=== PATIENT | female | born 1970 | race Caucasian/White ===

== ENCOUNTER 2019-10-10 10:28 | Outpatient (CLI) | payer OTHER, SELFPAY ==
[2019-10-10 10:47] LABS: Basophils Absolute Auto 0.1 K/mm3 (0.0-0.1); Basophils Percent Auto 0.6 % (0.2-1.2); Eosinophils Absolute Auto 0.9 K/mm3 (0-0.3); Eosinophils Percent Auto 8.8 % (0-4.4); Hematocrit 29.7 % (37.0-47.0); Hemoglobin 8.5 g/dL (12.0-15.0); Immature Granulocyte Absolute 0.12 K/mm3 (0.00-0.031); Immature Granulocyte Percent A 1.2 % (0-0.5); Lymphocytes Absolute Auto 1.23 K/mm3 (0.9-3.2); Lymphocytes Percent Auto 12.7 % (18.3-44.2); Mean Corpuscular HGB Conc 28.6 g/dl (32-36); Mean Corpuscular Hemoglobin 20.8 pg (26-34); Mean Corpuscular Volume 72.8 fl (80-100); Mean Platelet Volume 9.9 fl (7.4-10.4); Monocytes Absolute Auto 1.2 K/mm3 (0.1-0.6); Monocytes Percent Auto 11.8 % (2.6-8.5); Neutrophils Absolute Auto 6.3 K/mm3 (1.3-6.7); Neutrophils Percent Auto 64.9 % (45.5-73.1); Platelet Count Result 297 k/mm3 (150-375); Red Blood Count 4.08 M/mm3 (4.2-5.4); Red Cell Distribution Width 14.7 % (11.5-14.5); White Blood Count 9.7 K/mm3 (4.5-10.0)
[2019-10-10 10:49] LABS: Platelet Estimate Adequate (Adequate)
[2019-10-10 10:50] LABS: Hypochromasia 2+ (NORMAL)
[2019-10-10 10:51] LABS: Ovalocytes 1+ (NORMAL); Poikilocytosis 1+ (NORMAL)
[2019-10-10 12:26] LABS: Iron 31 ug/dL (37-170)
[2019-10-10 12:36] LABS: Percent Iron Saturation 7 % (20-50)
[2019-10-10 13:29] LABS: Folic Acid 5.2 ng/mL (2.76->20)
== END 2019-10-10 10:29 | disposition home or self-care (01) ==
LOC: ANHLAB 10:29
PROVIDERS: Visit Provider Internal Medicine Hematology & Oncology
DX: D64.9 Anemia, unspecified (principal)
CPT/HCPCS: 36415; 82607; 82728; 82746; 83540; 83550; 85025

== ENCOUNTER 2019-10-18 05:09 | Day surgery (SDC) | payer OTHER, SELFPAY ==
--- NOTE | ~2019-10-18 | BM_ITS ---
EXAMINATION: CCL bone marrow asp w bx diag DATE: 10/18/2019 09:02 INDICATION: Anemia. TECHNIQUE: A time-out was performed to verify the patient's name, date of , and procedure to b e performed. The procedure including the risks, benefits, and alternatives was discussed with the pat ient. Risks discussed included bleeding and infection. The patient understood the risks and agreed to proceed. The skin overlying the right posterior iliac spine was prepped and draped in usual sterile fashion. Anesthetic was administered with 1% lidocaine subcutaneously. Systemic analgesia was provide d with 50 mcg fentanyl IV. An 11 gauge needle was inserted into the ilium with fluoroscopic guidance. Bone marrow was aspirated. An 8 gauge needle was then inserted into the ilium with fluoroscopic guid ance. A core bone marrow biopsy was obtained. There were no immediate complications. Fluoroscopy expo sure time was 0.2 minutes. The total number of images was 36. FINDINGS: Real-time fluoroscopy demonstrates a marker overlying the right posterior iliac spine. IMPRESSION: 1. Successful fluoro-guided bone marrow aspiration. 2. Successful fluoro-guided bone marrow core biopsy. Reviewed, dictated and finalized at location A. [facility]
--- NOTE | 2019-10-18 07:30 | SUR.PREOP ---
ARRIVES AMBULATORY TO [facility] 3 W/ AT SIDE FOR SCHEDULED BM BX AND ASPIRATION W/ DR. STYLES. A&OX4, STEADY GAIT, DENIES PAIN OR SOB. ORIENTED TO ROOM, PLAN OF CARE, PROCEDURE. VS OBTAINED, IV STARTED, CONSENT SIGNED. WILL MONITOR.
[2019-10-18 07:41] LABS: Basophils Absolute Auto 0.1 K/mm3 (0.0-0.1); Basophils Percent Auto 0.7 % (0.2-1.2); Eosinophils Absolute Auto 0.9 K/mm3 (0-0.3); Eosinophils Percent Auto 8.9 % (0-4.4); Hematocrit 28.6 % (37.0-47.0); Hemoglobin 8.2 g/dL (12.0-15.0); Immature Granulocyte Absolute 0.15 K/mm3 (0.00-0.031); Immature Granulocyte Percent A 1.6 % (0-0.5); Lymphocytes Absolute Auto 1.41 K/mm3 (0.9-3.2); Lymphocytes Percent Auto 14.6 % (18.3-44.2); Mean Corpuscular HGB Conc 28.7 g/dl (32-36); Mean Corpuscular Hemoglobin 20.4 pg (26-34); Mean Corpuscular Volume 71.3 fl (80-100); Monocytes Percent Auto 10.8 % (2.6-8.5); Neutrophils Absolute Auto 6.1 K/mm3 (1.3-6.7); Neutrophils Percent Auto 63.4 % (45.5-73.1); Platelet Count Result 354 k/mm3 (150-375); Red Blood Count 4.01 M/mm3 (4.2-5.4); White Blood Count 9.6 K/mm3 (4.5-10.0)
[2019-10-18 07:56] LABS: Hypochromasia 1+ (NORMAL); Platelet Estimate Adequate (Adequate)
[2019-10-18 08:00] VITALS: BP 144/118; PULSE 81; RESP 20; TEMP 37.2; O2SAT 100
[2019-10-18 08:23] VITALS: BMI 40.6
[2019-10-18 09:10] VITALS: BP 122/99; PULSE 75; RESP 12; TEMP 37.1; O2SAT 100
[2019-10-18 09:25] VITALS: BP 147/88; PULSE 79; RESP 20
[2019-10-18 09:40] VITALS: BP 156/82; PULSE 78; RESP 22
[2019-10-18 09:55] VITALS: BP 146/81; PULSE 85; RESP 23
--- NOTE | 2019-10-18 10:13 | SUR.PHASEII ---
DISCHARGE INSTRUCTIONS REVIEWED WITH PATIENT AND SPOUSE BY DOMENICA THOMPSON, ALL QUESTIONS ANSWERED, IV DISCONTINUED, PATIENT DRESSING SELF, AND DRESSING IS CLEAN, DRY AND INTACT. PATIENT TAKEN OUT TO PRIVATE VEHICLE VIA WHEELCHAIR.
== END 2019-10-18 10:26 | disposition home or self-care (01) ==
PROVIDERS: PCP Nurse Practitioner Adult Health; Referring Provider Internal Medicine Hematology & Oncology; Visit Provider Radiology Diagnostic Radiology
DX: D64.9 Anemia, unspecified (principal)
CPT/HCPCS: 36415; 38222; 85025; 85610; 88184; 88185; 88305; 88311; 88313; 88342; 88360; J3010; J7040

== ENCOUNTER 2019-12-02 19:56 | Emergency (ER) | payer OTHER, SELFPAY ==
--- NOTE | ~2019-12-02 | XR_ITS ---
EXAMINATION: XR hip LT min 2V INDICATION: Left hip pain TECHNIQUE: Two views of the left hip are obtained. COMPARISON: None available FINDINGS: Bone alignment is normal. There is no fracture. The femoral head is well-seated in the acet abulum. The soft tissues are unremarkable. IMPRESSION: 1. No acute osseous abnormality. Reviewed, dictated and finalized at location A.
[2019-12-02 20:01] VITALS: BP 161/75; PULSE 76; RESP 18; TEMP 36.7; O2SAT 98
--- NOTE | 2019-12-02 20:30 | ED.LOWEXIN ---
HPI - Extremity Injury (Lower) General Chief Complaint: Extremity Injury, Lower Stated Complaint: HIP PAIN Time Seen by Provider: 12/02/19 20:01 History of Present Illness HPI Narrative: Left hip pain for the past few months. Increasing in severity. Made worse by coughing. Was controlled with Naproxen until last week, Now it is not providing any relief. She reports that she has discussed this pain with her PCP and tie puller. According to her she has had a negative x-ray and lab work-up. I discussed the case with the physician information systems operator for her PCP. She says there is nothing in the the record to indicate that she has ever addressed this or had any testing related to this issue. She has a h/o lupus. Related Data Home Medications Medication Instructions Recorded Confirmed aripiprazole 5 mg PO HS 10/18/19 11/07/19 aspirin [Adult Low Dose Aspirin] 81 mg PO DAILY 10/18/19 11/07/19 naproxen sodium 220 mg PO DAILY PRN 10/18/19 11/07/19 sertraline 100 mg PO DAILY 10/18/19 11/07/19 Allergies Allergy/AdvReac Type Severity Reaction Status Date / Time cinnamon Allergy Anaphylaxis Verified 12/02/19 20:09 erythromycin base Allergy Rash Verified 12/02/19 20:09 levofloxacin [From Levaquin] Allergy Hallucinati Verified 12/02/19 20:09 ng nutmeg oil (Myristica seed Allergy Anaphylaxis Verified 12/02/19 20:09 oil) all spice Allergy Anaphylaxis Uncoded 10/18/19 08:13 mace Allergy Anaphylaxis Uncoded 10/18/19 08:13 Review of Systems Review of Systems: All systems reviewed & are unremarkable except as noted in HPI and below Constitutional: Constitutional: Denies chills and Denies fever(s) ENT: Denies dizziness Cardiovascular: Cardiovascular: Denies chest pain Respiratory: Respiratory: Denies dyspnea Gastrointestinal: Gastrointestinal: Denies abdominal pain and Denies nausea Musculoskeletal: Musculoskeletal: Denies back pain and Reports arthralgias Neurologic: Denies numbness and Denies weakness PMF Past Medical History Medical History HTN (hypertension) SLE (systemic lupus erythematosus related syndrome) Social History Social History Smoking status: Never smoker Gender identity (if verbalized by the patient): Female Spiritual care concerns: No Exam Const: General: healthy appearing, no acute distress and alert Orientation/consciousness: patient oriented x3 HENMT: Head: normal to inspection Neck: Neck: normal visual inspection and no lymphadenopathy Chest: Chest palpation & inspection: no tenderness Resp: Effort & Inspection: normal respiratory effort Auscultation: clear to auscultation bilaterally, no rales, no rhonchi and no wheezes Cardio: Jugular venous distension: no JVD Rate: regular rate Rhythm: regular rhythm Heart sounds: no murmurs GI: Inspection: non-distended GI Palp: Yes Soft to palpation and No Tenderness to palpation present (GI) Skin: General skin exam: normal color Rashes: no rashes Neuro: General: patient oriented x3 and moves all extremities Speech: normal speech Extrem: Other: Point tenderness over left hip. No erythema, swelling or warmth Psych: Appearance: well kempt Affect: normal affect Course Vital Signs Vital signs: Vital Signs Temperature 36.7 C 12/02/19 20:01 Pulse Rate 76 12/02/19 20:01 Respiratory Rate 18 12/02/19 20:01 Blood Pressure 161/75 H 12/02/19 20:01 Pulse Oximetry 98 12/02/19 20:01 Temperature 36.7 C 12/02/19 20:01 Pulse Rate 76 12/02/19 20:01 Respiratory Rate 18 12/02/19 20:01 Blood Pressure 161/75 H 12/02/19 20:01 Pulse Oximetry 98 12/02/19 20:01 MDM - Extremity Injury (Lower) MDM Narrative Medical decision making narrative: SHe has chronic pain inthe left hip which she reportedly was having worked up by both her PCP and tie puller. According to the conversation that I had with
[2019-12-02] MEDS: KETOROLAC (*BKC) 60 MG/2 ML VIAL IM (20:39)
--- NOTE | 2019-12-02 21:09 | PC.NURSE ---
Patient being taken to radiology.
[2019-12-02] MEDS: TRAMADOL HCL 50 MG TABLET PO (22:18)
== END 2019-12-02 22:47 | disposition home or self-care (01) ==
PROVIDERS: Emergency Provider Emergency Medicine; PCP Nurse Practitioner Adult Health
DX: M25.552 Pain in left hip (principal); G89.29 Other chronic pain; I10 Essential (primary) hypertension; M32.9 Systemic lupus erythematosus, unspecified
CPT/HCPCS: 73502; 96372; 99283; A9270; J1885

== ENCOUNTER 2020-02-13 07:39 | Outpatient (CLI) | payer OTHER, SELFPAY ==
--- NOTE | ~2020-02-13 | PE_ITS ---
EXAMINATION: PET skull to mid thigh DATE: 02/13/2020 09:40 INDICATION: Bone and joint lesions. TECHNIQUE: Blood glucose level was 95 mg/dL. 10.114 mCi of 18-fluorodeoxyglucose (18-FDG) was adminis tered i.v. Low dose computed tomography (CT) images were acquired from the base of the brain to the p roximal thighs for attenuation correction and anatomic localization. Positron emission tomography (PE T) images were acquired in the same distribution beginning 57 minutes after injection. Images includi ng fused PET/CT images were reconstructed in axial, coronal, and sagittal planes. Automated exposure control technique was employed. The dose-length product was 1304.59mGy-cm. COMPARISON: None FINDINGS: Head/neck: There is symmetric increased activity in the oral cavity, palatine tonsils, laryngeal muscles and ocu lar muscles without CT correlate, likely physiologic. There is increased FDG uptake with maximal SUV of 5.3 centered at the neck of the mandible where there appears to be subtle surrounding periosteal r eaction which is concerning for metastatic disease. No pathologically enlarged cervical lymphadenopat hy or other suspicious foci of increased FDG uptake in the visualized head or neck. Chest: Moderate diffuse increased uptake with maximal SUV of 6.6 throughout the collapsed right middle lobe. 1.6 cm nodule at the posterior sulcus of the right lower lobe which is without discernible FDG uptak e. Calcified nodules in the left upper lobe and calcified left hilar lymph nodes consistent with old granulomatous disease. No other suspicious pulmonary nodules, pneumonia, pulmonary edema or pleural e ffusion. Heart size is normal. No pericardial effusion. No pathologically enlarged or FDG avid thorac ic lymphadenopathy. There is focal increased uptake with maximal SUV of 5.2 cm in the region of the T 8-T9 disc space were superior aspect of the T9 vertebral body without evident radiologic correlate. Abdomen/pelvis/proximal thighs: There is an approximately 5.1 x 3.6 x 2.3 cm region of increased FDG uptake at the lateral aspect of segment 6 of the liver with mildly increased FDG uptake of with maximal SUV of 4.3 which is without e vident correlate on the CT images. Physiologic renal accumulation and excretion of FDG activity in th e kidneys, bladder and along portions of ureters. Couple larger nonobstructing stones in the left kid vi the larger measuring 9 x 6 mm. The gallbladder, pancreas, spleen and bilateral adrenal glands are normal. There is marked FDG uptake at the distal sigmoid colon with maximal SUV of 21.4 and with sug gestion of associated wall mild wall thickening which raises concern for malignancy. There is otherwi se mild uptake scattered throughout the bowels without radiologic correlate, also likely physiologic. No pathologically enlarged abdominal, pelvic or inguinal lymphadenopathy. There is additional intens e increased FDG uptake with maximal SUV of 17.0/oh with a large expansile lytic lesion with pathologi c fracture at the right atrium and lateral aspect of the right inferior pubic ramus. There is thicken ed soft tissue surrounding the bone likely representing extraosseous extension of malignancy. There i s additional small regions of increased FDG uptake in the left ischium as well as around the margins of the left acetabulum with maximal SUV of 7.2. There is a subtle permeative appearance to the bone w ith additional pathologic fracture at the junction of the left superior pubic ramus and anterior left acetabulum. Finally there is a small region of increased FDG uptake with maximal SUV of 5.6 located at or near the left lesser trochanter without evident osseous correlate. There is an approximately 2 cm nodular density along the posterior margin of the left iliopsoas tendon at its lesser trochanteric insertion, unclear whether this represents soft tissue density nodule concerning for neoplasm or pot e
[2020-02-13 08:07] LABS: Glucose Point of Care 95 (65-105)
== END 2020-02-13 07:40 | disposition home or self-care (01) ==
LOC: ANHIMG 07:39
PROVIDERS: PCP Nurse Practitioner Adult Health; Visit Provider Nurse Practitioner Adult Health
DX: A66.6 Bone and joint lesions of yaws (principal); R91.1 Solitary pulmonary nodule
CPT/HCPCS: 78815; A9552

== ENCOUNTER 2020-02-20 00:13 | Outpatient (CLI) | payer OTHER, SELFPAY ==
[2020-02-20 18:37] LABS: SARS-CoV-2 RNA PCR Negative
== END 2020-02-20 00:14 | disposition home or self-care (01) ==
LOC: ANHCOVIDDT 00:14
PROVIDERS: PCP Nurse Practitioner Adult Health; Visit Provider Surgery
DX: Z01.812 Encounter for preprocedural laboratory examination (principal); Z11.59 Encounter for screening for other viral diseases
CPT/HCPCS: 87635; C9803; U0003

== ENCOUNTER 2020-02-21 02:34 | Day surgery (SDC) | payer OTHER, SELFPAY ==
[2020-02-18 16:22] VITALS: BMI 40.4
--- NOTE | ~2020-02-21 | XR_ITS ---
EXAMINATION: XR chest port-a-cath/central DATE: 02/21/2020 10:16 INDICATION: Port placement. TECHNIQUE: A single frontal view of the chest was obtained. COMPARISON: Chest 2 views 03/24/2004 FINDINGS: There is chronic elevation of right hemidiaphragm. There is mild atelectasis at right lung base. A calcified left lung nodule and calcified left hilar lymph nodes are consistent with old granu lomatous disease. No pleural effusion or pneumothorax. The heart size is normal. There is a right int ernal jugular port with tip at superior cavoatrial junction. IMPRESSION: 1. Port tip at superior cavoatrial junction. 2. Chronic elevation of right hemidiaphragm with mild atelectasis at right lung base. Reviewed, dictated and finalized at location A.
--- NOTE | ~2020-02-21 | XR_ITS ---
EXAMINATION: XR fl guide central line place DATE: 02/21/2020 09:44 INDICATION: Port placement. TECHNIQUE: A single intraoperative fluoroscopic view of the chest was obtained. I was not present. Fl uoroscopy exposure time was 25 seconds. COMPARISON: PET CT 02/13/2020 FINDINGS: There is a right internal jugular port with tip in right atrium. IMPRESSION: 1. Port tip in right atrium. Reviewed, dictated and finalized at location A.
--- NOTE | 2020-02-21 07:38 | PM.HPGS ---
History of Present Illness History of Present Illness Consent: Risks, benefits, and alternatives of placement of a Port-A-Cath have been discussed and questions answered. Patient agrees to proceed with procedure. Chief complaint: Colon Cancer Narrative: Karina Rodriguez is a 49 year old female who apparently had blood abnormalities and then a PET scan showed several bone lesions with increased FDG uptake. These included the ACL on the right the pubic ramus in the left acetabulum. She subsequently had a CT-guided biopsy of the right ischial tuberosity and because of suspected metastatic colon cancer presents at this time to have a Port-A-Cath placed. She is planning chemotherapy with Dr. Bueno. Review of Systems Constitutional: Constitutional: Reports no additional constitutional complaints, Reports fatigue and Denies malaise Eyes: Eyes: Denies change in vision and Denies loss of vision ENT: Reports Normal hearing present, Denies change in voice, Denies dizziness, Denies hoarseness and Denies sore throat Cardiovascular: Cardiovascular: Denies chest pain, Denies leg edema and Denies dyspnea Respiratory: Respiratory: Denies cough, Denies dyspnea and Denies wheezing Gastrointestinal: Gastrointestinal: Denies hematochezia, Denies change in bowel habits and Denies heartburn Genitourinary: Genitourinary: Denies urinary frequency and Denies urinary incontinence Musculoskeletal: Comments: History of lupus on medications. Neurologic: Reports Normal hearing present, Denies confusion, Denies dizziness, Denies loss of vision, Denies memory loss and Denies seizure-like activity Psychiatric: Psychiatric: Denies confusion, Denies depression and Denies memory loss Endocrine: Endocrine: Denies cold intolerance and Reports fatigue Hematologic/Lymphatic: Hematologic/Lymphatic: Denies easy bleeding and Denies easy bruising Comments: History of anemia, multifactorial History of vitamin B12 deficiency. Allergic/Immunologic: Allergic/Immunologic: Denies wheezing PMFSH Past Medical History Medical History HTN (hypertension) SLE (systemic lupus erythematosus related syndrome) (Unknown) Social History Social History Smoking status: Never smoker Gender identity (if verbalized by the patient): Female Spiritual care concerns: No Meds Home Medications and Allergies Home Medications Medication Instructions Recorded Confirmed Type aripiprazole 5 mg PO DAILY 10/18/19 02/21/20 History aspirin [Adult Low Dose Aspirin] 81 mg PO DAILY 10/18/19 02/21/20 History naproxen sodium 220 mg PO DAILY PRN 10/18/19 02/21/20 History sertraline 100 mg PO DAILY 10/18/19 02/21/20 History ergocalciferol (vitamin D2) 50,000 unit PO WEEKLY 02/18/20 02/21/20 History morphine 30 mg PO Q12H 02/18/20 02/21/20 History Allergies Allergy/AdvReac Type Severity Reaction Status Date / Time cinnamon Allergy Anaphylaxis Verified 02/18/20 16:02 erythromycin base Allergy Rash Verified 02/18/20 16:02 levofloxacin [From Levaquin] Allergy Hallucinati Verified 02/18/20 16:02 ng nutmeg oil (Myristica seed Allergy Anaphylaxis Verified 02/18/20 16:02 oil) all spice Allergy Anaphylaxis Uncoded 02/18/20 16:02 mace Allergy Anaphylaxis Uncoded 02/18/20 16:02 Exam Const: General: cooperative, healthy appearing, no acute distress, well developed and alert; No confusion Nutritional Appearance: well nourished Orientation/consciousness: patient oriented x3 and No confusion Limitations: no limitations HENMT: Head: normal to inspection, normocephalic and atraumatic Ears: hearing grossly normal bilaterally General nose exam: Normal external nose present Face and sinus: no edema Mouth: Yes Normal oral and palatal mucosa present and Yes lip normal Throat: posterior oropharynx normal Eyes: General: appearance normal, both eyes and all related struc
--- NOTE | 2020-02-21 07:43 | WPDANESEPPF ---
Anes - Initial Pre Proc Eval Procedure: Operation Date: 02/21/20 09:00 Proposed Procedures p Insertion Ann Cath - William Chester MD Date/Time: 02/21/20 07:43 Surgeon: Willaim Chester MD Pre Op Diagnosis: Colon Cancer Patient Data Age: 49 Gender: F Height: 5 ft 5 in Weight: 110.22 kg Allergies Allergy/AdvReac Type Severity Reaction Status Date / Time cinnamon Allergy Anaphylaxis Verified 02/18/20 16:02 erythromycin base Allergy Rash Verified 02/18/20 16:02 levofloxacin [From Levaquin] Allergy Hallucinati Verified 02/18/20 16:02 ng nutmeg oil (Myristica seed Allergy Anaphylaxis Verified 02/18/20 16:02 oil) all spice Allergy Anaphylaxis Uncoded 02/18/20 16:02 mace Allergy Anaphylaxis Uncoded 02/18/20 16:02 Home Medications Medication Instructions Recorded Confirmed Type aripiprazole 5 mg PO DAILY 10/18/19 02/18/20 History aspirin [Adult Low Dose Aspirin] 81 mg PO DAILY 10/18/19 02/18/20 History naproxen sodium 220 mg PO DAILY PRN 10/18/19 02/18/20 History sertraline 100 mg PO DAILY 10/18/19 02/18/20 History ergocalciferol (vitamin D2) 50,000 unit PO WEEKLY 02/18/20 02/18/20 History morphine 30 mg PO Q12H 02/18/20 02/18/20 History Patient hx anesthesia problems: none Family hx anesthesia problems: none PMFSH Past Medical History Medical History HTN (hypertension) SLE (systemic lupus erythematosus related syndrome) (Unknown) Social History Social History Smoking status: Never smoker Gender identity (if verbalized by the patient): Female Spiritual care concerns: No Anes - Eval Final PreProcedure Day of Procedure 02/21/20 07:43 Patient weight: morbidly obese Heart: regular rate and rhythm Lungs: decreased breath sounds Airway: Mallampati scale class II Neurological: alert and oriented Last oral intake: >/= 8 hours ASA classification: III Emergent: no Anesthetic plan: proceed Anesthesia type and monitoring: general GIVS and standard monitoring Informed Consent: The patient's anesthetic plan and its attendant risks and benefits were discussed with the patient/family/POA. Questions were solicited and answers provided to the satisfaction of the patient/family/POA.
[2020-02-21 08:00] VITALS: BP 144/79; PULSE 93; TEMP 36.1; O2SAT 97
[2020-02-21] MEDS: LACTATED RINGERS 1,000 ML 30 ML IV CONT (08:10)
[2020-02-21] MEDS: KETOROLAC 15 MG/ML VIAL (*BKC) IV PUSH (08:46)
[2020-02-21] MEDS: ceFAZolin 2 GM/D5W 50 ML 2 GM/50 ML BAG IVPB (09:01)
[2020-02-21] MEDS: BUPIVACAINE/EPINEPHRINE 0.5% 30 ML VIAL INFILTRATE (09:18)
[2020-02-21] MEDS: HEPARIN SODIUM 5,000 UNITS/ML VIAL 5000 UNITS IRRIGATION (09:21)
--- NOTE | 2020-02-21 09:47 | PM.PROC ---
Procedure Note - Detailed Date of procedure: 02/21/20 Pre-op diagnosis: Colon Cancer Possible bony metastasis secondary to colon cancer Post-op diagnosis: same Procedure performed: placement of Port-A-Cath Description of procedure: Patient was seen and marked in the pre-op area prior to coming to the OR. Patient was brought to the operating room. She was placed supine on the operating table and general IV sedation was induced. The nurse seed potato cutter provided oxygen and IV sedation. Patient's head was carefully turned to the left side while in the supine position and the patient's entire neck and anterior chest on both sides was prepped and draped in the usual sterile fashion. Following this the appropriate time-out was completed confirming procedure and patient. We confirmed that all the needed equipment was present in the room. Following this the ultrasound probe was draped into the field and using the probe we carefully identified the carotid artery and jugular vein on the right neck. I marked the skin directly over the Rt. internal jugular vein. Following this, using the continuous ultrasound guidance, a Cook needle was placed through the skin into this vein. I then was able to draw back good dark blood. Once this was completed a guidewire using a J-tip was advanced through the needle and then the needle and the guidewire cover were withdrawn. C-arm fluoroscopy was used to confirm that the guidewire was nicely in the venous system. Once this was confirmed with the C - arm I preceded on by making the pocket for the port on the patient's anterior right chest approximately 3 centimeters below the clavicle overlying the chest wall. Local anesthetic was infiltrated into the skin where there was a transverse incision marked out. Incision was made and we made a pocket inferior to the incision with just a little dissection superior. The Smart port was tried in the pocket and seemed to fit well. Following this the catheter which had been placed on a tunneling device was tunneled from the port site on the anterior right chest up to the right neck where a small incision had been made with an #11 blade knife. Then the catheter was pulled through so that we would have 15 centimeters to put into the central venous system once the dilation took place. Following this we placed the dilator and sheath over the guidewire in the jugular vein and carefully dilated the tract into the central venous system. The guidewire and dilator were then removed, carefully covering the end of the sheath to prevent air embolus. The end of the catheter which had been cut off straight across and the tip checked was then inserted into the sheath and into the neck. I then carefully pulled the 2 arms of the tear-away sheath away as the project assistant held the catheter in position with a DeBakey forceps. Following this we checked the position of the catheter with C-arm fluoroscopy confirming that the tip seemed to be in the distal superior vena cava near the junction with the right atrium. I felt that it was in good position and so the rest of the catheter was pulled down toward the feet into the port site. We then measured to the appropriate position to cut the catheter to attach it to the port stem. Then the connector sealing device for the catheter port was placed onto the catheter and then the catheter cut to the appropriate length and inserted onto the stem of the port. Then the connector was advanced onto the stem over the catheter sealing it to the port. A single 3- 0 Prolene suture was also used during this to suture the connector to the port and to the underlying musculature. Following this at one other site the port was sutured to the underlying musculature with the 3-0 Proline. Both prior to connecting the catheter to the port and then using a straight Villanueva needle following this connection, the port was aspirated of good dark blood and flushed with heparinized saline to keep the catheter
[2020-02-21 09:55] VITALS: BP 137/73; PULSE 87; RESP 14; O2SAT 94
[2020-02-21 10:25] VITALS: BP 138/71; PULSE 85; RESP 14
[2020-02-21 10:55] VITALS: BP 139/70; PULSE 78; RESP 14
--- NOTE | 2020-02-21 14:59 | SUR.PHASEII ---
DR OREILLY CALLED ABOUT HER CHEST XRAY AND ASKED ME TO GET HER AN INCENTIVE SPIROMETER AND TEACH HER ON USING IT. PT IS EDUCATED AND SAYS SHE WILL USE IT AT HOME FOR THE NEXT FEW DAYS.
== END 2020-02-21 11:00 | disposition home or self-care (01) ==
PROVIDERS: PCP Nurse Practitioner Adult Health; Visit Provider Surgery
PROC: (CPT 36561; principal; 2020-02-21 09:00)
DX: C18.9 Malignant neoplasm of colon, unspecified (principal); C79.51 Secondary malignant neoplasm of bone; I10 Essential (primary) hypertension; M32.9 Systemic lupus erythematosus, unspecified; D64.9 Anemia, unspecified; Z79.82 Long term (current) use of aspirin; E66.01 Morbid (severe) obesity due to excess calories; Z68.38 Body mass index [BMI] 38.0-38.9, adult
CPT/HCPCS: 36561; 36415; 77001; 85610; 85730; C1788; J0690; J1644; J1885; J2250; J2704; J3010; J7030; J7120

== ENCOUNTER 2020-02-26 00:51 | Outpatient (CLI) | payer OTHER, SELFPAY ==
[2020-02-27 13:59] LABS: SARS-CoV-2 RNA PCR Negative
== END 2020-02-26 00:52 | disposition home or self-care (01) ==
LOC: ANHCOVIDDT 00:53
PROVIDERS: PCP Nurse Practitioner Adult Health; Visit Provider Radiology Diagnostic Radiology
DX: C18.7 Malignant neoplasm of sigmoid colon (principal); Z01.818 Encounter for other preprocedural examination; Z11.59 Encounter for screening for other viral diseases
CPT/HCPCS: 87635; C9803; U0003

== ENCOUNTER 2020-02-28 13:21 | Outpatient (CLI) | payer OTHER, SELFPAY ==
[2020-02-26 14:12] VITALS: BMI 39.7
[2020-02-28] VITALS (8 sets, daily range): BP systolic 147–159; BP diastolic 65–88; PULSE 80–155; RESP 12–18; TEMP 37; O2SAT 92–100
--- NOTE | ~2020-02-28 | CT_ITS ---
EXAMINATION: CT biopsy bone deep DATE: 02/28/2020 14:44 INDICATION: Colon cancer with lytic bone lesions. TECHNIQUE: The procedure including the risks and benefits was discussed with the patient. Risks discu ssed included bleeding and infection. The patient understood the risks and agreed to proceed. The sk in overlying the right ischial tuberosity was prepped and draped in usual sterile fashion. Anestheti c was administered with 1% lidocaine subcutaneously. Moderate sedation was also provided by the [facility] tment of anesthesia. A 16 gauge outer needle was advanced under CT guidance to the lesion of interest . An 18 gauge core biopsy needle was then advanced into the lesion. 7 core biopsy specimens were obta ined. The outer needle was removed and the entry site was cleaned and dressed. There were no immedia te complications. The dose-length product was 141.19 mGy-cm. FINDINGS: CT images demonstrate the outer needle tip at the margin of a destructive lytic lesion invo lving the right ischial tuberosity. Small amount of ascites in the pelvis. IMPRESSION: 1. Successful CT-guided biopsy of a destructive lytic lesion of the right ischial tuberosity. Reviewed, dictated and finalized at location A. IMPRESSION: 1. Successful CT-guided biopsy of a destructive lytic lesion of the right ischi al tuberosity.
--- NOTE | 2020-02-28 11:44 | WPDANESEPPF ---
Anes - Initial Pre Proc Eval Procedure: Operation Date: 02/28/20 13:00 Proposed Procedures p Post Procedure Recovery For CT Bone Biopsy - Gabe Mckeon MD Date/Time: 02/28/20 11:44 Surgeon: Lai Bueno MD Pre Op Diagnosis: colon cancer Patient Data Age: 49 Gender: F Height: 5 ft 5 in Weight: 108.41 kg Allergies Allergy/AdvReac Type Severity Reaction Status Date / Time cinnamon Allergy Anaphylaxis Verified 02/26/20 14:12 erythromycin base Allergy Rash Verified 02/26/20 14:12 levofloxacin [From Levaquin] Allergy Hallucinati Verified 02/26/20 14:12 ng nutmeg oil (Myristica seed Allergy Anaphylaxis Verified 02/26/20 14:12 oil) all spice Allergy Anaphylaxis Uncoded 02/26/20 14:12 mace Allergy Anaphylaxis Uncoded 02/26/20 14:12 Home Medications Medication Instructions Recorded Confirmed Type aripiprazole 5 mg PO QNOON 10/18/19 02/26/20 History aspirin [Adult Low Dose Aspirin] 81 mg PO DAILY 10/18/19 02/26/20 History naproxen sodium 220 mg PO DAILY PRN 10/18/19 02/26/20 History sertraline 100 mg PO DAILY 10/18/19 02/26/20 History ergocalciferol (vitamin D2) 50,000 unit PO WEEKLY 02/18/20 02/26/20 History morphine 30 mg PO Q12H 02/18/20 02/26/20 History hydrocodone-acetaminophen 1 tablet PO Q6H PRN #30 tablet 02/24/20 02/26/20 Rx Patient hx anesthesia problems: none Family hx anesthesia problems: none PMFSH Past Medical History Medical History (Updated 02/28/20 @ 11:44 by Oneal Schmitz MD) Anemia (~08/2019) Bone metastasis (~01/2020) Colon cancer metastasized to bone (~12/2019) History of lung cancer in adulthood HTN (hypertension) SLE (systemic lupus erythematosus related syndrome) (Unknown) Family History Family History (Updated 02/24/20 @ 13:46 by Figueroa Nicole MD) Other Unknown family medical history Social History Social History Smoking status: Never smoker Gender identity (if verbalized by the patient): Female Spiritual care concerns: No Anes - Eval Final PreProcedure Day of Procedure 02/28/20 11:44 Patient weight: morbidly obese Heart: regular rate and rhythm Lungs: clear to auscultation Airway: Mallampati scale class III Neurological: alert and oriented Last oral intake: >/= 8 hours ASA classification: IV Emergent: no Anesthetic plan: proceed Anesthesia type and monitoring: general GIVS and standard monitoring Informed Consent: The patient's anesthetic plan and its attendant risks and benefits were discussed with the patient/family/POA. Questions were solicited and answers provided to the satisfaction of the patient/family/POA.
[2020-02-28] MEDS: LACTATED RINGERS 1,000 ML 30 ML IV CONT (14:51)
== END 2020-02-28 16:50 | disposition home or self-care (01) ==
PROVIDERS: Radiology Diagnostic Radiology; PCP Nurse Practitioner Adult Health; Visit Provider Internal Medicine Hematology & Oncology
DX: C18.9 Malignant neoplasm of colon, unspecified (principal)
CPT/HCPCS: 20225; 77012; 88307; 88313; 88342; A9270; J2704

== ENCOUNTER 2020-03-26 10:38 | Outpatient (CLI) | payer OTHER, SELFPAY ==
--- NOTE | ~2020-03-26 | US_ITS ---
EXAMINATION: US venous doppler LE RT DATE: 03/26/2020 11:18 INDICATION: Right lower limb swelling. TECHNIQUE: Grayscale ultrasound images without and with compression and Doppler ultrasound images of the right lower extremity veins were obtained. COMPARISON: None. FINDINGS: The visualized portions of right common femoral vein, profunda (deep) femoral vein, femoral vein, pop liteal vein, peroneal veins, posterior tibial veins, and greater saphenous vein outflow are patent. IMPRESSION: 1. No deep venous thrombosis. Reviewed, dictated and finalized at location B.
== END 2020-03-26 10:39 | disposition home or self-care (01) ==
LOC: ANHIMG 10:40
PROVIDERS: PCP Nurse Practitioner Adult Health; Visit Provider Internal Medicine Hematology & Oncology
DX: M79.89 Other specified soft tissue disorders (principal)
CPT/HCPCS: 93971

== ENCOUNTER 2020-04-02 23:10 | Observation (INO) | payer OTHER, SELFPAY ==
--- NOTE | ~2020-04-02 | CT_ITS ---
EXAMINATION: CT chest abdomen pelvis wo con DATE: 04/03/2020 18:44 INDICATION: Gastrointestinal bleed TECHNIQUE: Computed tomography (CT) of the chest, abdomen, and pelvis was performed without intraveno us contrast. Automated exposure control and iterative reconstruction technique were employed. The dos e-length product was 1592.43 mGy-cm. COMPARISON: PET/CT dated 02/13/2020 FINDINGS: CHEST CT: Right subclavian central venous port catheter with distal tip in the high right atrium. Chronic colla pse of the right middle lobe with elevation of right hemidiaphragm. Unchanged 1.5 cm nodule at the po sterior sulcus of the right lower lobe. Atelectasis/scarring in the right lower lobe. No pneumonia, p ulmonary edema, pleural effusion or pneumothorax. A few scattered calcified pulmonary nodules in both lungs along with calcified left hilar lymph nodes consistent with old granulomatous disease. Heart s ize is normal. No pericardial effusion. No pathologically enlarged thoracic lymphadenopathy. Mild tho racic spondylosis. ABDOMEN/PELVIS CT: There are 4 subtle hypodense hepatic masses consistent with metastatic disease. Gallbladder, pancreas and bilateral adrenal glands are normal. Splenic calcifications consistent with old granulomatous di sease. There are obstructing stones at the distal aspect of both the left and right ureters measuring 9 x 4 mm in the distal right ureter and 5 x 3 mm in the distal right ureter. Mild bilateral hydroure teronephrosis. There are few additional stones in both kidneys the largest at the lower pole calyces of the left kidney. Normal appendix. No bowel obstruction. There is wall thickening and surrounding inflammatory stranding at the distal sigmoid colon consisten t with reported colon cancer. There are few surrounding perirectal lymph nodes along with an approxim ately 1.7 cm spiculated nodule in the presacral fat which are concerning for metastatic disease. Blad rosetta is normal. The uterus is not identified and has likely been surgically resected. Small amount of ascites in the deep pelvis. Scattered soft tissue calcifications associated with an expansile lytic mass with destructive changes and pathologic fracture at the right ischium and inferior pubic ramus. There is additional soft tiss ue thickening with periosteal reaction extending medially from a lytic lesion with pathologic fractur e at the junction of the left acetabulum and superior pubic ramus. There is an additional healing lik joshua pathologic fracture with increased sclerosis at the right superior pubic ramus. IMPRESSION: 1. No acute cardiopulmonary disease. 2. Bilateral nephrolithiasis with obstructing stones at the bilateral distal ureters resulting in mil d bilateral hydronephrosis. 3. Wall thickening at the distal sigmoid colon consistent with primary colon cancer with likely metas tatic perirectal lymph nodes, hepatic masses and lytic pelvic bone lesions with pathologic fractures as detailed above. Reviewed, dictated and finalized at location A. IMPRESSION: 1. No acute cardiopulmonary disease. 2. Bilateral nephrolithiasis with obstructing stones at the bilateral distal ur eters resulting in mild bilateral hydronephrosis. 3. Wall thickening at the distal sigmoid colon consistent with primary colon ca ncer with likely metastatic perirectal lymph nodes, hepatic masses and lytic pe lvic bone lesions with pathologic fractures as detailed above.
--- NOTE | ~2020-04-02 | US_ITS ---
EXAMINATION: US renal BI DATE: 04/03/2020 14:43 INDICATION: Acute kidney injury, acute renal failure TECHNIQUE: Multiple grayscale and Doppler ultrasound images of the kidneys were obtained. COMPARISON: CT, 02/13/2020 FINDINGS: The right kidney measures 9.8 x 4.5 x 4.7 cm. The left kidney measures 10.5 x 5.1 x 5.3 cm. The kidneys demonstrate normal parenchymal echogenicity. Calcifications of the left kidney lower ami e measure up to 12 mm. There is mild right hydronephrosis. The bladder is normal. IMPRESSION: 1. Mild right hydronephrosis. 2. Left nephrolithiasis. Reviewed, dictated and finalized at location A.
[2020-04-02 23:19] VITALS: BP 140/87; PULSE 106; RESP 14; TEMP 36.6; O2SAT 100
--- NOTE | 2020-04-02 23:32 | ED.GENADULT ---
HPI - General Adult General Chief complaint: Unspecified Stated complaint: severly dehydrated Time Seen by Provider: 04/02/20 23:20 Source: RN notes reviewed History of Present Illness HPI narrative: Patient presents emergency department from home for dehydration. Patient states she currently has colon cancer and just finished radiation treatments last week. She states she was supposed to start chemotherapy this week with Dr. Clemens on Monday she was deemed to be too dehydrated had to have fluids at that time. Patient states she had been feeling better the next day but began to get progressively worse yesterday and into today. She states that her mouth feels dry she states she has diarrhea chronically over the last several weeks which have been secondary to radiation. She denies any fevers or chills chest pain shortness of breath abdominal pain nausea vomiting or any other symptoms. Related Data Home Medications Medication Instructions Recorded Confirmed aripiprazole 5 mg PO QNOON 10/18/19 03/31/20 aspirin [Adult Low Dose Aspirin] 81 mg PO DAILY 10/18/19 03/31/20 naproxen sodium 220 mg PO DAILY PRN 10/18/19 03/31/20 sertraline 100 mg PO DAILY 10/18/19 03/31/20 ergocalciferol (vitamin D2) 50,000 unit PO WEEKLY 02/18/20 03/31/20 morphine 30 mg PO Q12H 02/18/20 03/31/20 ondansetron HCl [Zofran] 4 mg PO Q6H PRN 03/17/20 03/31/20 sulfamethoxazole-trimethoprim 1 tablet PO Q12H 03/31/20 03/31/20 [Bactrim DS] Allergies Allergy/AdvReac Type Severity Reaction Status Date / Time cinnamon Allergy Anaphylaxis Verified 02/26/20 14:12 erythromycin base Allergy Rash Verified 02/26/20 14:12 levofloxacin [From Levaquin] Allergy Hallucinati Verified 02/26/20 14:12 ng nutmeg oil (Myristica seed Allergy Anaphylaxis Verified 02/26/20 14:12 oil) all spice Allergy Anaphylaxis Uncoded 02/26/20 14:12 mace Allergy Anaphylaxis Uncoded 02/26/20 14:12 Review of Systems Review of Systems: Narrative: Gen.: Denies fevers or chills ENT: Denies congestion Respiratory: Denies shortness of breath or cough CV: Denies chest pain or palpitations GI: Denies abdominal pain nausea, emesis o reports diarrhea denies burning, urgency, frequency or hematuria Musculoskeletal: Denies back pain or muscle pain Neuro: Denies numbness, tingling, weakness or focal weakness Skin: Denies rash Except as documented, all other systems reviewed and negative [facility] Past Medical History Medical History Anemia (~08/2019) Bone metastasis (~01/2020) Colon cancer metastasized to bone (~12/2019) History of lung cancer in adulthood HTN (hypertension) SLE (systemic lupus erythematosus related syndrome) (Unknown) Family History Family History (Updated 02/24/20 @ 13:46 by Figueroa Nicole MD) Other Unknown family medical history Social History Social History Smoking status: Never smoker Gender identity (if verbalized by the patient): Female Spiritual care concerns: No Exam Narrative: Exam Narrative: APPEARANCE: No acute distress, nontoxic, resting in bed EYES: EOMI HEENT: Normocephalic, atraumatic, oromucosa dry RESPIRATORY: No respiratory distress Clear to auscultation bilaterally with no rhonchi wheezing or rales. CARDIOVASCULAR: Regular rate and rhythm without murmurs rubs or gallops. ABDOMINAL: Soft, nontender, nondistended, no rebound or guarding MUSCULOSKELETAl: Moves all extremities. No clubbing, cyanosis or edema. NEURO: Awake and alert. Following commands, speech normal, no focal deficits SKIN:: Warm, dry. No rashes lesions or abrasions PSYCHIATRIC: Normal affect/mood, Course Course Emergency Course: Reviewed old records. Patient's creatinine normally been running around 1.3 and then jumped into the upper twos with blood work done on 31 March Called and discussed with Dr. oconnor presentation work-up. Agrees wi
[2020-04-02] MEDS: SODIUM CHLORIDE 0.9% IV 1,000 ML 999 ML IV CONT (23:41)
[2020-04-02 23:47] LABS: Basophils Percent Auto 0.1 % (0.2-1.2); Eosinophils Percent Auto 0.2 % (0-4.4); Hematocrit 32.3 % (37.0-47.0); Immature Granulocyte Absolute 2.38 K/mm3 (0.00-0.031); Lymphocytes Absolute Auto 0.68 K/mm3 (0.9-3.2); Lymphocytes Percent Auto 4.9 % (18.3-44.2); Mean Corpuscular Volume 74.4 fl (80-100); Mean Platelet Volume 8.8 fl (7.4-10.4); Monocytes Absolute Auto 1.8 K/mm3 (0.1-0.6); Monocytes Percent Auto 12.6 % (2.6-8.5); Neutrophils Absolute Auto 9.1 K/mm3 (1.3-6.7); Neutrophils Percent Auto 65.2 % (45.5-73.1); Platelet Count Result 349 k/mm3 (150-375); Red Blood Count 4.34 M/mm3 (4.2-5.4); Red Cell Distribution Width 15.4 % (11.5-14.5)
[2020-04-03] VITALS (19 sets, daily range): BP systolic 76–149; BP diastolic 54–94; PULSE 78–109; RESP 14–29; TEMP 36.5–36.9; O2SAT 95–100; BMI 36.8
[2020-04-03] LABS: Alanine Aminotransferase 7 U/L (4-35); Albumin Level 3.3 g/dL (3.5-5.1); Alkaline Phosphatase 127 U/L (38-126); Anion Gap 10 mmol/L (8-16); Aspartate Amino Transferase 23 U/L (14-36); Bilirubin,Total 0.5 mg/dL (0.2-1.3); Blood Urea Nitrogen 28 mg/dL (7-17); Calcium 8.2 mg/dL (8.4-10.2); Carbon Dioxide 25 mmol/L (22-30); Chloride 98 mmol/L (98-107); Estimated CRCL calculation 27 ml/min; Estimated Glomerular Filt Rate 19; Glucose 95 mg/dL (65-105); Magnesium 2.2 mg/dL (1.6-2.3); Potassium 3.9 mmol/L (3.4-5.0); Sodium 133 mmol/L (137-145)
--- NOTE | 2020-04-03 | ECHO_ITS ---
Patient Info Name: Karina Rodriguez Age: 49 years : 1970 Gender: Female Ht: 65 in Wt: 221 lbs BSA: 2.19 m2 HR: 84 bpm BP: 132 / 64 mmHg Technical Quality: Good Exam Date: 04/03/2020 10:12 AM Exam Location: [facility] Pulmonary Patient Status: Outpatient Admit Date: 04/03/2020 Staff Ordering Physician: Symone Segura PA-C Recreation Therapist: Ashley Solomon RDCS Attending Provider: Symone Segura PA-C Referring Physician: Colton SNELL; Exam Type: CA echo doppler color flow Study Info Indications - ALVES HX/O CA /CHEMO Complete two-dimensional, color flow and Doppler transthoracic echocardiogram is performed. Summary 1. Left ventricular chamber dimension is normal. 2. Left ventricular systolic function is normal, estimated at 65-70%. 3. The left ventricular diastolic function is grade I diastolic dysfunction. 4. E/e' 10 is mildly elevated. 5. No pulmonary hypertension, estimated pulmonary arterial systolic pressure is 29 mmHg. Left Ventricle E/e' 10 is mildly elevated. Left ventricular chamber dimension is normal. Left ventricular systolic function is normal, estimated at 65-70%. The left ventricular diastolic function is grade I diastolic dysfunction. Right Ventricle Right ventricular chamber dimension is normal. Right ventricular systolic function is normal. Left Atria Left atrial chamber dimension is normal. Right Atria Right atrial chamber dimension is normal. Aortic Valve The aortic valve is trileaflet. There is no aortic valve stenosis. There is no aortic valve regurgitation. Pulmonic Valve There is no pulmonic regurgitation. Mitral Valve There is no mitral valve stenosis. There is no mitral valve regurgitation. Tricuspid Valve There is no tricuspid valve regurgitation. No pulmonary hypertension, estimated pulmonary arterial systolic pressure is 29 mmHg. Pericardium/Pleural There is no pericardial effusion. Inferior Vena Cava Normal inferior vena cava with >50% collapse upon inspiration consistent with normal right atrial pressure, 5 mmHg. Aorta The aortic root size at the sinus of Valsalva is normal. Left Ventricular Outflow Tract Name Value Normal LVOT 2D LVOT Diameter 2.0 cm LVOT Doppler LVOT Peak Gradient 5 mmHg LVOT Mean Gradient 3 mmHg LVOT VTI 24 cm LVOT VTI/AV VTI Ratio 0.9 LVOT Stroke Volume 76 ml LVOT CO 15.7 l/min LVOT CI 7.2 l/min/m2 Pulmonic Valve Name Value Normal PV Doppler PV Peak Gradient 3 mmHg Mitral Valve Name Value Normal
[2020-04-03] MEDS: SODIUM CHLORIDE 0.9% IV 1,000 ML 999 ML IV CONT (01:00)
[2020-04-03 02:30] LABS: Add Urine Microscopic? YES; Appearance Urine Turbid (Clear); Bacteria Urine 2+ /hpf; Bilirubin Urine Negative (Negative); Blood Urine 2+ (Negative); Budding Yeast Urine Present /hpf; Color Urine Yellow (Yellow); Glucose Urine UA Negative (Negative); Ketones Urine Negative (Negative); Leukocyte Esterase Ur 3+ LEU/UL (Negative); Nitrate Urine Negative (Negative); Protein Urine 2+ mg/dL (Negative); RBC Urine >75 /hpf (0-2); Specific Grav Ur 1.016 (1.001-1.035); Uric Acid Crystals Urine Present /hpf; WBC Clumps Urine Present /HPF; WBC Urine >75 /hpf
[2020-04-03 03:46] LABS: Lactic Acid Reflex 0.7 mmol/L (0.7-2.1)
[2020-04-03] MEDS: SODIUM CHLORIDE 0.9% IV 1,000 ML 150 ML IV CONT ×3 (04:30→21:02)
--- NOTE | 2020-04-03 04:38 | PC.NURSE ---
This patient, Karina Rodriguez, was admitted to [facility] Surg Room 301-01. Patient/family oriented to hospital policies and general routines including ID bracelet, bed and alarms, visiting hours, pain management, procedures, bathroom and other care routines, personal items, smoking policy, room service/diet, and visiting hours. Valuables list has been completed. Information on how to activate the Rapid Response Team has been discussed. Patient/Family are encouraged to report perceived risks to care and to ask questions if they do not understand what they are told or what they should do.
--- NOTE | 2020-04-03 06:59 | PM.IMHP ---
H&P: HPI History of Present Illness Date/Time: 04/03/20 06:59 Chief complaint: Acute renal insufficiency Narrative: Karina Rodriguez is a 49 year old female with a history of lupus, colon cancer metastasized to the bone, and bipolar disorder who presented emergency room due to significant weakness and severe dehydration. The patient has taken a couple rounds of chemotherapy and was was to get her next dose on Monday but was unable to do so due to being dehydrated. She received an iron infusion and some fluids at that time. On Monday she felt better but yesterday she starting feeling worse again. She felt very dehydrated and had a significantly dry mouth and fatigue. She has had a lot of diarrhea due to the radiation. She is also having some dysuria and which Dr. Bueno prescribed her Bactrim which she started taking March 31. She has also started having shaking chills intermittently. She denies nausea, vomiting, chest pain, shortness of breath at rest, cough or night sweats. She started having some dyspnea on exertion about 2 days ago which is unusual for her. She has never been told that she has a heart murmur. She says her right leg swells intermittently when it is dependent but she has no history of blood clots. She has a history of SVT and since she has been dehydrated, she has noticed that she has had some tachycardia but no chest pain with this. She has multiple wounds on her coccyx and also some on her pelvic area that she has been treating with Neosporin. Review of Systems Review of Systems: All systems reviewed & are unremarkable except as noted in HPI and below PMFSH Past Medical History Medical History (Updated 04/03/20 @ 08:07 by Symone Segura PA-C) Anemia (~08/2019) Bipolar disorder Bone metastasis (~01/2020) Colon cancer metastasized to bone (~12/2019) History of lung cancer in adulthood HTN (hypertension) Pathological fracture in neoplastic disease, pelvis, sequela SLE (systemic lupus erythematosus related syndrome) (Unknown) Surgical History Surgical History (Updated 04/03/20 @ 07:49 by Symone Segura PA-C) History of adenoidectomy History of hysterectomy History of lithotripsy Family History Family History (Updated 02/24/20 @ 13:46 by Figueroa Nicole MD) Other Unknown family medical history Social History Social History (Updated 04/03/20 @ 07:50 by Symone Segura PA-C) Social History: Patient was adopted therefore her family history is unknown. She does not drink alcohol, has never smoked, and does not do marijuana or drugs. She is no longer working due to her cancer and is trying to get on disability. She would like to appoint her Carlos Mello as her medical decision maker if needed. She would like to be a full code Smoking status: Never smoker Alcohol intake: never Substance use: never Gender identity (if verbalized by the patient): Female Spiritual care concerns: No Meds Home Medications and Allergies Home Medications Medication Instructions Recorded Confirmed Type aripiprazole 5 mg PO QNOON 10/18/19 04/03/20 History naproxen sodium 220 mg PO DAILY PRN 10/18/19 04/03/20 History sertraline 100 mg PO DAILY 10/18/19 04/03/20 History ergocalciferol (vitamin D2) 50,000 unit PO WEEKLY 02/18/20 04/03/20 History morphine 30 mg PO Q12H 02/18/20 04/03/20 History hydrocodone-acetaminophen [Lorcet 1 tablet PO Q6H PRN #30 tablet 03/10/20 04/03/20 Rx HD] ondansetron HCl [Zofran] 4 mg PO Q6H PRN 03/17/20 04/03/20 History sulfamethoxazole-trimethoprim 1 tablet PO Q12H 03/31/20 04/03/20 History [Bactrim DS] Allergies Allergy/AdvReac Type Severity Reaction Status Date / Time cinnamon Allergy Anaphylaxis Verified 04/03/20 03:06 erythromycin base Allergy Rash Verified 04/03/20 03:06 levofloxacin [From Levaquin] Allergy Hallucinati Verified 04/03/20 03:06 ng nutmeg oil (Myristica seed Allergy Anaphylaxis Verified 04/03/20 03:06 oil)
[2020-04-03] MEDS: SERTRALINE HCL 50 MG TABLET 100 MG PO (08:22)
[2020-04-03] MEDS: MORPHINE SULFATE 30 MG TABCR PO (08:22)
[2020-04-03 09:56] LABS: Basophils Absolute Auto 0.1 K/mm3 (0.0-0.1); Basophils Percent Auto 0.7 % (0.2-1.2); Eosinophils Percent Auto 0.3 % (0-4.4); Hematocrit 24.2 % (37.0-47.0); Hemoglobin 7.4 g/dL (12.0-15.0); Immature Granulocyte Absolute 1.76 K/mm3 (0.00-0.031); Immature Granulocyte Percent A 16.4 % (0-0.5); Lymphocytes Absolute Auto 0.71 K/mm3 (0.9-3.2); Lymphocytes Percent Auto 6.6 % (18.3-44.2); Mean Corpuscular HGB Conc 30.6 g/dl (32-36); Mean Corpuscular Hemoglobin 22.8 pg (26-34); Mean Corpuscular Volume 74.5 fl (80-100); Mean Platelet Volume 8.9 fl (7.4-10.4); Monocytes Absolute Auto 1.5 K/mm3 (0.1-0.6); Neutrophils Absolute Auto 6.7 K/mm3 (1.3-6.7); Platelet Count Result 256 k/mm3 (150-375); Red Blood Count 3.25 M/mm3 (4.2-5.4); Red Cell Distribution Width 15.2 % (11.5-14.5); White Blood Count 10.7 K/mm3 (4.5-10.0)
[2020-04-03 10:12] LABS: Anion Gap 6 mmol/L (8-16); Blood Urea Nitrogen 25 mg/dL (7-17); Calcium 7.1 mg/dL (8.4-10.2); Carbon Dioxide 22 mmol/L (22-30); Chloride 105 mmol/L (98-107); Estimated CRCL calculation 34 ml/min; Estimated Glomerular Filt Rate 24; Glucose 90 mg/dL (65-105); Potassium 3.5 mmol/L (3.4-5.0); Sodium 133 mmol/L (137-145)
[2020-04-03] MEDS: LIDOCAINE/PRILOCAINE 2.5-2.5% KIT 1 EACH TOPICAL (12:00)
[2020-04-03 12:26] LABS: Partial Thromboplastin Time 33.3 SECONDS (22.3-36.8)
--- NOTE | 2020-04-03 12:38 | PM.CNGS ---
Assessment and Plan Assessment and plan (1) Colon cancer metastasized to bone: Onset Date: ~12/2019 Code(s): C18.9 - Malignant neoplasm of colon, unspecified; C79.51 - Secondary malignant neoplasm of bone Status: Acute Assessment and Plan: cont to hold chemo for now, likely bleeding from primary colon cancer in distal sigmoid, d/w pt if need for emergent surgery she would get resection and ostomy (2) Lower GI bleed: Code(s): K92.2 - Gastrointestinal hemorrhage, unspecified Status: Acute Assessment and Plan: seems to have stabilized, will tx 2 units now, HD stable, tx to ICU, if not actively bleeding would consider transfer to tertiary center for poss coil embolization if bleeding recurs (3) Dehydration: Code(s): E86.0 - Dehydration Status: Acute Assessment and Plan: cont rehydration per primary team (4) SLE (systemic lupus erythematosus related syndrome): Onset Date: Unknown Code(s): M32.9 - Systemic lupus erythematosus, unspecified Status: Acute Assessment and Plan: stable, cont tx per primary team (5) UTI (urinary tract infection): Code(s): N39.0 - Urinary tract infection, site not specified Status: Acute Assessment and Plan: cont abx (6) Bipolar disorder: Code(s): F31.9 - Bipolar disorder, unspecified Status: Acute Assessment and Plan: stable cont current tx History of Present Illness Consult details Consult date: 04/03/20 Reason for consult: other (GI bleed) Requesting physician: Symone Segura PA-C Narrative: Pt is a 49 y/o F c h/o sigmoid colon cancer c known mets to bone initially presenting c weakness, dehydration. Pt has recently completed course of radiation in pelvis for bone mets. Pt currently getting chemotx. Pt reports intermittent bleeding c bowel movts over last few months but had large clots last night. Pt c noted approx 3 gr drop in Hgb this am. Pt reports no further bleeding this am. Pt feeling weak and light headed. Review of Systems Constitutional: Constitutional: Reports body ache(s), Reports fatigue, Reports lethargy and Reports weakness Eyes: Eyes: Reports no additional eye complaints ENT: Reports Normal hearing present and Denies dysphagia Cardiovascular: Cardiovascular: Denies chest pain, Reports lightheadedness and Denies palpitations Respiratory: Respiratory: Denies dyspnea Gastrointestinal: Gastrointestinal: Denies abdominal pain, Reports hematochezia, Denies constipation, Denies nausea and Denies vomiting Genitourinary: Genitourinary: Denies hematuria and Denies dysuria Musculoskeletal: Musculoskeletal: Reports back pain, Reports myalgias, Reports arthralgias, Reports joint swelling and Reports stiffness Integumentary/Breasts: Skin/Breast: Reports wounds Neurologic: Reports system reviewed and no additional complaints, except as documented Psychiatric: Psychiatric: Reports no additional psychiatric complaints [facility] Past Medical History Medical History Anemia (~08/2019) Bipolar disorder Bone metastasis (~01/2020) Colon cancer metastasized to bone (~12/2019) History of lung cancer in adulthood HTN (hypertension) Pathological fracture in neoplastic disease, pelvis, sequela SLE (systemic lupus erythematosus related syndrome) (Unknown) Surgical History Surgical History History of adenoidectomy History of hysterectomy History of lithotripsy Family History Family History Other Unknown family medical history Social History Social History Social History: Patient was adopted therefore her family history is unknown. She does not drink alcohol, has never smoked, and does not do marijuana or drugs. She is no longer working due to her cancer
[2020-04-03] MEDS: ARIPiprazole 5 MG TABLET PO (12:52)
--- NOTE | 2020-04-03 13:39 | PC.NURSE ---
Addendum entered by Lewis Rasmussen RN 04/03/20 13:41: Transferred at 1330. Original Note: Pt transferred to ICU 11. Report given to Tracy. Meds and chart sent downstairs. Pump and tele brought back to 3M/S. went downstairs with, carrying her personal belongings.
--- NOTE | 2020-04-03 13:42 | PC.NURSE ---
Pt passed large blood clot rectally at 1100. Notified Symone Cadmus of approximately 6 clot. Symone requested pt to move to IMU and a unit of blood. Pt continued having both continent and incontinent bloody BMs, as well as blood leaking from rectum. Pt diaphoretic and fine tremors, with stable vitals. Pt 22 RAC IV bad. Called Nedra for PIV placement. 22LFA placed. Pt has port; Symone okayed access. Terri attempted placement, had good blood return and flushed with ease. Connected a port access to a 1 L bolus. Pt family called that port area had a large bubble on it. Pt had pocket of fluid subdermally. Removed port access. Informed Nedra who said she would attempt access when fluid resolves. Verbal order for bolus was 1000mls, but order in system was 500mls. Left VM for Symone to clarify bolus amount. Transferred pt to ICU with report to Tracy at 1330.
[2020-04-03 14:25] LABS: Vitamin B12 > 1000.0 pg/mL (239-931)
[2020-04-03] MEDS: CENTRAL LINE FLUSH 10 ML IV PUSH (14:46)
[2020-04-03] MEDS: NEOMYCIN/POLYMYXIN/BACITRACIN OINTMENT PACKET 1 PACKET (14:46)
[2020-04-03] MEDS: SODIUM CHLORIDE 0.9% IV 500 ML 999 ML IV CONT (14:47)
--- NOTE | 2020-04-03 14:57 | WPDCNINT ---
Assessment and Plan Assessment and plan (1) Lower GI bleed: Code(s): K92.2 - Gastrointestinal hemorrhage, unspecified Status: Acute Assessment and Plan: patient has developed acute lower GI bleed which is either from her cancer which is most likely in sigmoid area or she has developed radiation proctitis /colitis patient is getting 3 units of packed red cells at this time with 4th on hold. Will check hemoglobin post that and serial hemoglobins after that. she received 1 L saline bolus and IV infusion of fluids Will continue general surgery was consulted and I spoke to Dr. Salas. he recommends the patient be transferred to a facility where they can do angiogram to potentially embolize the source of bleeding. He believes the general surgery will be high risk considering her cancer and radiation history and should be last resort. Hospitalist team spoke to [facility]. they have accepted the patient but do not have any ICU bed at this time. I spoke to Dr. Fox at [facility] who also is ready to accept the patient once they have a ICU bed available. Plan to transfer the patient as soon as bed is available. Meanwhile continue blood transfusion. If patient is not not transferred and needs emergent surgery will get a CT abdomen with contrast localize the source of bleeding and rule out radiation proctitis/ colitis as the etiology as it will change the surgical approach. Concerning patient is in a NIGEL and that puts her at high risk of worsening her kidney function and she may need dialysis. I have spoken to patient in detail about all these options and possible complications and she understands the risks. She wants to avoid surgery at all costs if possible. 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 She has completed 10 sessions. she has also received 1 session of her chemotherapy and was unable to continue due to dehydration on her last appointment patient seen by oncology (3) NIGEL (acute kidney injury): Code(s): N17.9 - Acute kidney failure, unspecified Status: Acute Assessment and Plan: likely prerenal from hypovolemia getting IV fluid and blood transfusion renal ultrasound done monitor urine output creatinine and electrolytes (4) Hypotension due to blood loss: Code(s): I95.89 - Other hypotension Status: Acute Assessment and Plan: patient received IV fluid bolus and is getting PRBC transfusion continue IV fluid infusion may need Levophed for support check lactic acid with next hemoglobin check (5) UTI (urinary tract infection): Code(s): N39.0 - Urinary tract infection, site not specified Status: Acute Assessment and Plan: patient is on IV Rocephin. Blood and urine cultures pending DVT prophylaxis - SCDs Stress ulcer prophylaxis - IV PPI Nutrition - NPO Code Status - I spoke to patient in detail and she wants to be full code at this time Total Critical Care Time - minutes Due to a high probability of clinically significant, life threatening deterioration, the patient required my highest level of preparedness to intervene emergently and I personally spent this critical care time directly and personally managing the patient. This critical care time included obtaining a history; examining the patient; pulse oximetry; ordering and review of studies; arranging urgent treatment with development of a management plan; evaluation of patient's response to treatment; frequent reassessment; and discussions with other providers. It was exclusive of separately billable procedures and treating other patients and teaching time. Please see Assessment and Plan section and the rest of
[2020-04-03 15:00] LABS: Fibrinogen 231 mg/dl (215-510)
--- NOTE | 2020-04-03 15:35 | PDONCCN ---
HPI - Date of Consult Date/Time: 04/03/20 15:35 Requesting Physician: Symone Segura PA-C Primary Care Provider: Jenny Werner, LABOR DELIVERY SPECIALIST - Consult Narrative Reason for consult: Metastatic colon cancer. Narrative: Karina Rodriguez is a 49 year old female This is the 49-year-old pleasant unfortunate female who was recently diagnosed with metastatic colon cancer with bone liver and lung involvement. She has a history of iron deficiency anemia but failed to have colonoscopy done previously due to several reasons. She had right is chills bone biopsy done on February 28, 2020 that showed metastatic colon cancer. She started for sound of palliative chemotherapy with FOLFOX Avastin on March 17, 2020. She came into the hospital with generalized weakness and fatigue. She started having nausea vomiting as well as bleeding per rectum just about 2 days ago. She was also recently is started on Bactrim for recent UTI. Her hemoglobin was 10.0 on admission and dropped to 7.4 overnight. She is currently receiving blood transfusion due to active GI bleed. 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 Onset Date: ~12/2019 History of lung cancer in adulthood HTN (hypertension) Pathological fracture in neoplastic disease, pelvis, sequela SLE (systemic lupus erythematosus related syndrome) Onset Date: Unknown Surgical History: Surgical History (Last Reviewed 04/03/20 @ 15:00 by Lj Silverman MD) History of adenoidectomy History of hysterectomy History of lithotripsy Family History: Family History (Last Reviewed 04/03/20 @ 15:00 by Lj Silverman MD) Other Unknown family medical history - Social History Social History: Social History (Last Reviewed 04/03/20 @ 15:00 by Lj Silverman MD) Gender Identity: Gender identity (if verbalized by the patient): Female Alcohol Use: Alcohol intake: never Substance Use: Substance use: never Others: Spiritual care concerns: No Smoking Status: Smoking status: Never smoker Meds Home Medications Medication Instructions Recorded Confirmed Type aripiprazole 5 mg PO QNOON 10/18/19 04/03/20 History naproxen sodium 220 mg PO DAILY PRN 10/18/19 04/03/20 History sertraline 100 mg PO DAILY 10/18/19 04/03/20 History ergocalciferol (vitamin D2) 50,000 unit PO WEEKLY 02/18/20 04/03/20 History morphine 30 mg PO Q12H 02/18/20 04/03/20 History hydrocodone-acetaminophen [Lorcet 1 tablet PO Q6H PRN #30 tablet 03/10/20 04/03/20 Rx HD] ondansetron HCl [Zofran] 4 mg PO Q6H PRN 03/17/20 04/03/20 History sulfamethoxazole-trimethoprim 1 tablet PO Q12H 03/31/20 04/03/20 History [Bactrim DS] Allergies Allergy/AdvReac Type Severity Reaction Status Date / Time cinnamon Allergy Anaphylaxis Verified 04/03/20 03:06 erythromycin base Allergy Rash Verified 04/03/20 03:06 levofloxacin [From Levaquin] Allergy Hallucinati Verified 04/03/20 03:06 ng nutmeg oil (Myristica seed Allergy Anaphylaxis Verified 04/03/20 03:06 oil) all spice Allergy Anaphylaxis Uncoded 04/03/20 03:06 mace Allergy Anaphylaxis Uncoded 04/03/20 03:06 Results - Labs CBC & Chem 7: 04/03/20 09:39 04/03/20 09:39 Labs: Short CBC 04/02/20 04/03/20 Range/Units 23:42 09:39 WBC 14.0 H 10.7 H (4.5-10.0) K/mm3 Hgb 10.0 L 7.4 L (12.0-15.0) g/dL Hct 32.3 L 24.2 L (37.0-47.0) % Plt Count 349 256 (150-375) k/mm3 BMP 04/02/20 04/03/20 23:42 09:39 Sodium 133 L 133 L Potassium 3.9 3.5 Chloride 98 105 Carbon Dioxide 25
[2020-04-03 15:37] LABS: Iron 91 ug/dL (37-170); Percent Iron Saturation 48 % (20-50)
--- NOTE | 2020-04-03 16:24 | WPDGICN ---
Assessment and Plan Assessment and plan (1) Lower GI bleed: Code(s): K92.2 - Gastrointestinal hemorrhage, unspecified Status: Acute Assessment and Plan: it seems that bleeding stopped after medical treatment, blood transfusion surgery on board in case rebleeding but ideally will need to transfer to tertiary center for possible coil embolization if bleeding recurs I won't be able to do much endoscopically given nature of large mass in sigmoid and recent treatment with radiation. 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 She did not get a colonoscopy because could not tolerate prep but anyhow PET scan showed widespread metastatic disease with primary sigmoid colon mass, she had right ischial tuberosity biopsy positive for adenocarcinoma primary colon. She started palliative chemotherapy with FOLFOX Avastin on March 17, 2020, then last week received radiation therapy. She came here with generalized weakness and passed large amount of blood per rectum. she is feeling better now, moved to ICU. hb dropped to 7.4 from 10 Review of Systems Constitutional: Constitutional: Reports fatigue, Reports lethargy and Reports weakness Eyes: Eyes: Denies blurry vision ENT: Reports Normal hearing present, Denies headache(s) and Denies neck pain Cardiovascular: Cardiovascular: Denies chest pain and Denies dyspnea Respiratory: Respiratory: Denies dyspnea Gastrointestinal: Gastrointestinal: Reports hematochezia Genitourinary: Genitourinary: Denies dysuria Integumentary/Breasts: Skin/Breast: Denies dry skin Neurologic: Reports Normal hearing present Psychiatric: Psychiatric: Denies anxiety Endocrine: Endocrine: Denies change in body appearance Hematologic/Lymphatic: Hematologic/Lymphatic: Denies easy bleeding Allergic/Immunologic: Allergic/Immunologic: Denies urticaria PMFSH Past Medical History Medical History Anemia (~08/2019) Bipolar disorder Bone metastasis (~01/2020) Colon cancer metastasized to bone (~12/2019) History of lung cancer in adulthood HTN (hypertension) Pathological fracture in neoplastic disease, pelvis, sequela SLE (systemic lupus erythematosus related syndrome) (Unknown) Surgical History Surgical History History of adenoidectomy History of hysterectomy History of lithotripsy Family History Family History Other Unknown family medical history Social History Social History Social History: Patient was adopted therefore her family history is unknown. She does not drink alcohol, has never smoked, and does not do marijuana or drugs. She is no longer working due to her cancer and is trying to get on disability. She would like to appoint her Carlos Mello as her medical decision maker if needed. She would like to be a full code Smoking status: Never smoker Alcohol intake: never Substance use: never Gender identity (if verbalized by the patient): Female Spiritual care concerns: No Meds Home Medications and Allergies Home Medications Medication Instructions Recorded Confirme
[2020-04-03 17:21] LABS: Hemoglobin 10.9 g/dL (12.0-15.0)
--- NOTE | 2020-04-03 17:36 | PM.CNNEP ---
Assessment and Plan Assessment and plan (1) NIGEL (acute kidney injury): Code(s): N17.9 - Acute kidney failure, unspecified Status: Acute (2) Chronic kidney disease, stage 3: Code(s): N18.3 - Chronic kidney disease, stage 3 (moderate) Status: Chronic (3) Lower GI bleed: Code(s): K92.2 - Gastrointestinal hemorrhage, unspecified Status: Acute (4) Hypotension: Code(s): I95.9 - Hypotension, unspecified Status: Acute (5) Colon cancer: Code(s): C18.9 - Malignant neoplasm of colon, unspecified Status: Acute Assessment and Plan: . Additional Plan Karina has acute kidney injury/acute renal failure on top of her baseline renal insufficiency. Her history would suggest volume depletion was playing a role with regard to her admission creatinine but the fact that her hemoglobin has dropped and she had issues/problems with hypotension would argue that renal perfusion to her kidneys was probably also affected as well. The bigger concern is that if she continues to have issues and problems with GI bleeding possibly related to her colon cancer and or radiation proctitis, she may require a CT angiogram to localize the source of the bleed with possible embolization but this may also acutely worsen her kidney function given the necessity of dye use. Her blood pressure appears to be doing better following IV fluids and packed red blood cell transfusion so hopefully perhaps maybe her kidney function will start to improve in the next 24 hours. I did discuss at length (> 20 minutes) with the patient that if further intervention needs to be done including the use of a CT angiogram to localize the source of bleeding, she remains at risk for further kidney damage and possibly even needing renal replacement therapy/dialysis. She appeared to voice understanding. I will continue follow patient with you while she remains hospitalized and make further recommendations during hospital course. Thank you for allowing me to participate in care this patient. History of Present Illness Reason for Consult Consult date: 04/03/20 Reason for consult: acute renal failure Chief Complaint Chief complaint: Acute renal insufficiency History of Present Illness Narrative: The patient is a 49 year old female with past medical history as outlined below who to [facility] ER early this morning with complaints of weakness/fatigue and dehydration. At this time, the patient has completed one round of chemotherapy and 10 rounds of radiation therapy. Her 2nd round of chemotherapy was delayed as was felt that she had signs and symptoms of dehydration. She was given IV fluid hydration and subsequently sent home. Following this, she felt better for about a day or so but then started feeling weak/fatigued like she was before when she was told that she was dehydrated. Hence, she came to the ER for further evaluation and therapy. Workup and evaluation in the emergency room demonstrated the patient to be hemodynamically stable but she did appear to be somewhat weak and fatigued. Routine blood test demonstrated a significant decline in her kidney function. Her baseline creatinine runs around 1.3 mg/dL for the last year so and was acutely up to 2.7 mg/dL on presentation to the ER. Given her history as noted above, it was felt that volume depletion was playing a role with her renal dysfunction and she was started on IV fluids and admitted to the hospital for further evaluation and therapy. Earlier this morning, the patient was having bright red blood per rectum and associates in with large clots. Routine lab showed a drop her hemoglobin by almost 3 g associated with hypotension. She was subsequently transferred to the intensive care unit for closer monitoring given the concern for possible acute GI bleed and the need for closer monitoring particularly given her hypotension. She was given aggressive IV fluid r
[2020-04-03] MEDS: PANTOPRAZOLE SODIUM IV 40 MG VIAL IV PUSH (21:01)
--- NOTE | 2020-04-03 21:26 | PC.NURSE ---
2126- Patient being transferred to [place] surgical ICU room 7805, report called to Merlin THOMPSON. Belongings checked. Patient stable and ready for transport.
--- NOTE | 2020-04-04 08:11 | PM.TDS ---
Transfer Discharge Sum: Prov Provider Date of admission: 04/03/20 02:05 Primary care physician: Jenny Werner, BOXING INSPECTOR Admitting clinician: Paty Oconnor DO Consults: 04/03/20 Wound/ET Consult Routine Reason for Consult:: multiple wounds and macerations Wound/ET Consult Routine Reason for Consult:: wounds on her pelvis and coccyx. 04/03/20 02:06 Consult to Physician Routine Comment: Consulting Provider: Lai Bueno Reason for consultation: colon ca Has provider been notified: Yes Consult to Physician Routine Comment: CALLED OFFICE @0903 ([place],US)DR CALLED BACK 905 Consulting Provider: Royce Murdock Reason for consultation: Acute renal sufficiency Has provider been notified: Yes 04/03/20 11:52 Consult to Physician Routine Comment: Consulting Provider: Humberto De Santiago clinical laboratory aides teacher/MD group to consult: teresa Reason for consultation: GI bleed Has provider been notified: Yes DS: Admitting Diagnosis Admitting Diagnosis Admitting Diagnosis: Acute renal insufficiency DS: Discharge Diagnosis Discharge Diagnosis (1) Lower GI bleed: Code(s): K92.2 - Gastrointestinal hemorrhage, unspecified Status: Acute Assessment and Plan: -----patient started having mild and very intermittent blood in her stool 2 days prior to admission. While she was here, she started having diffuse lower GI bleeding that was maroon/red which caused her to be incontinent. Her hemoglobin dropped 3 points overnight and the patient was symptomatic as she was lightheaded and tremulous. She was moved to the ICU and given 3 units of blood in her hemoglobin improved to 10. The source of bleeding was likely from her colon cancer. I spoke with Dr. Bueno, Dr. Polanco, Dr. Salas, the intensiveist, and my supervising physician about plan of care. Mary and Elena were contacted and Elena accepted her to the surgical ICU. Patient was transferred in stable but serious condition. (2) UTI (urinary tract infection): Code(s): N39.0 - Urinary tract infection, site not specified Status: Acute Assessment and Plan: -----UA suspicious for UTI in the patient has a leukocytosis. Patient was given ceftriaxone and I will monitor cultures. Creatinine also elevated 2.7, likely due to dehydration and infection. Continue IV fluids and monitor. Patient's lactic acid was within normal limits. Blood cultures pending. Of note, the patient started Bactrim on March 31 which may alter growth on the urine culture. (3) Acute renal insufficiency: Code(s): N28.9 - Disorder of kidney and ureter, unspecified Status: Acute Assessment and Plan: -----patient's creatinine is 2.7 today up from 1.3 earlier this month. Likely due to UTI, dehydration and possibly Bactrim. Patient was receiving IV fluids upon transfer. (4) Dehydration: Code(s): E86.0 - Dehydration Status: Acute Assessment and Plan: -----as stated above, continue IV fluids (5) Hyponatremia: Code(s): E87.1 - Hypo-osmolality and hyponatremia Status: Acute Assessment and Plan: -----sodium mildly low 133. Will monitor during treatment, could be due to combination cancer, uncontrolled pain, SSRI use, and infx. (6) Colon cancer metastasized to bone: Onset Date: ~12/2019 Code(s): C18.9 - Malignant neoplasm of colon, unspecified; C79.51 - Secondary malignant neoplasm of bone Status: Acute Assessment and Plan: -----patient recently finished radiation to her blake mets and gets chemotherapy with Dr. Bueno. Dr. Bueno has been consulted. (7) Anxiety: Code(s): F41.9 - Anxiety disorder, unspecified Status: Acute Assessment and Plan: -----continue home aripioprazole and sertaline. (8) Iron deficiency anemia: Code(s): D50.9 - Iron deficiency anemia, unspecified Status: Acute Assessment
== END 2020-04-03 21:26 | disposition short-term general hospital (02) ==
LOC: ANHED 23:32 → ANH3MEDSUR 04-03 02:15 → ANHICU 04-03 15:10 → ANH3MEDSUR 04-06 14:59 → ANHICU 04-06 14:59
PROVIDERS: Internal Medicine; Internal Medicine Hematology & Oncology; Physician Assistant; Admitting Provider Internal Medicine; Emergency Provider Emergency Medicine; PCP Nurse Practitioner Adult Health; Visit Provider Family Medicine
DX: K92.2 Gastrointestinal hemorrhage, unspecified (principal); N17.9 Acute kidney failure, unspecified; C18.9 Malignant neoplasm of colon, unspecified; C79.51 Secondary malignant neoplasm of bone; N39.0 Urinary tract infection, site not specified; E86.0 Dehydration; E87.1 Hypo-osmolality and hyponatremia; D50.9 Iron deficiency anemia, unspecified; R06.00 Dyspnea, unspecified; R19.7 Diarrhea, unspecified; F41.9 Anxiety disorder, unspecified; R53.1 Weakness; I12.9 Hypertensive chronic kidney disease with stage 1 through stage 4 chronic kidney disease, or unspecified chronic kidney disease; I95.89 Other hypotension; L98.418 Non-pressure chronic ulcer of buttock with other specified severity; M32.9 Systemic lupus erythematosus, unspecified; M84.550 Pathological fracture in neoplastic disease, pelvis; N18.3 Chronic kidney disease, stage 3 (moderate); Z85.118 Personal history of other malignant neoplasm of bronchus and lung; F31.9 Bipolar disorder, unspecified; Z92.3 Personal history of irradiation; Z92.21 Personal history of antineoplastic chemotherapy
CPT/HCPCS: 36415; 36430; 71250; 74176; 76775; 80048; 80053; 81001; 82607; 82728; 83540; 83550; 83605; 83735; 85014; 85018; 85025; 85384; 85730; 86850; 86900; 86901; 86923; 87040; 87077; 87086; 87088; 87186; 93306; 96361; 96365; 96375; 97161; 97165; 99285; A9270; C9113; G0378; J0696; J7030; J7040; P9016

== ENCOUNTER 2020-04-22 12:13 | Observation (INO) | payer OTHER, SELFPAY ==
[2020-04-22] VITALS (10 sets, daily range): BP systolic 106–135; BP diastolic 67–77; PULSE 75–87; RESP 2–20; TEMP 36.5–36.8; O2SAT 99–100; BMI 39.0
--- NOTE | ~2020-04-22 | XR_ITS ---
XR chest 1V DATE: 04/22/2020 12:54 INDICATION: Weakness. Sigmoid colon carcinoma. TECHNIQUE: Portable AP chest on 05/02/2020 at 1247 hours COMPARISON: 04/03/2020 CT chest abdomen pelvis 02/21/2020 portable AP chest FINDINGS: Right Port-A-Cath catheter tip overlies the lower superior vena cava. Normal heart size. There is prominent elevation left leaf of diaphragm and atelectasis at the right lung base. The left lung is clear. No pleural effusion or pulmonary vascular congestion or pneumothorax is detected. Diffuse osteopenia. Degenerative spurring of the thoracic spine. IMPRESSION: No significant change since 02/21/2020 Reviewed, dictated and finalized at location A.
--- NOTE | ~2020-04-22 | MR_ITS ---
EXAMINATION: MR brain/brain stem wo con DATE: 04/23/2020 09:52 INDICATION: Intermittent mental status changes. Metastatic disease. TECHNIQUE: Magnetic resonance imaging (MRI) of the brain and brainstem was performed without intraven ous contrast. Patient's renal function insufficient to allow for intravenous contrast. Sequences incl uded sagittal and axial T1-weighted SE, axial diffusion-weighted FS SE, axial T2*-weighted GRE, axial T2-weighted FLAIR, and axial T2-weighted FSE. Apparent diffusion coefficient (ADC) maps were created . COMPARISON: Head CT dated 04/22/2020 FINDINGS: There are no areas of restricted diffusion to suggest acute infarction. No intracranial hemorrhage or abnormal intracranial mass lesion. There are a few scattered small T2 hyperintense lesions in the ce rebral white matter. There are no intraparenchymal signal abnormalities seen on the other pulse seque nces. The ventricles are symmetric and normal in size. There are no abnormal extra-axial fluid collec tions. Flow voids are seen in the cerebral arteries on the T2-weighted sequences consistent with thei r expected patency. There is a lesion at the neck of the right mandible with up to 1 cm thick surroun ding aggressive periosteal reaction with radially oriented low signal intensity tear on an pattern ca lcification suspicious for metastatic disease. No other bone lesions identified. Mild mucosal thicken ing in the bilateral ethmoid and maxillary sinuses. Visualized orbits and soft tissues are otherwise unremarkable. IMPRESSION: 1. A few scattered nonspecific T2 hyperintense white matter lesions which remains within normal limit s for age although in the setting of known metastatic disease, metastatic foci cannot be excluded. 2. Likely metastatic bone lesion with prominent surrounding periosteal reaction at the neck of the ri ght mandible. Reviewed, dictated and finalized at location A. IMPRESSION: 1. A few scattered nonspecific T2 hyperintense white matter lesions which remai ns within normal limits for age although in the setting of known metastatic dis ease, metastatic foci cannot be excluded. 2. Likely metastatic bone lesion with prominent surrounding periosteal reaction at the neck of the right mandible.
--- NOTE | ~2020-04-22 | CT_ITS ---
EXAMINATION: CT brain wo con DATE: 04/22/2020 12:45 INDICATION: Weakness and dizziness after chemotherapy today. Disoriented for a couple of days. TECHNIQUE: Computed tomography (CT) of the head was performed without intravenous contrast. The mA wa s adjusted according to patient size. Iterative reconstruction technique was employed. Exam dose: 60 5.33 mGy-cm total exam DLP. COMPARISON: 03/14/2004 CT brain FINDINGS: No intracranial mass lesion or hemorrhage or cerebrovascular accident. No midline shift or mass effect. Normal ventricular size. No subdural or epidural hematoma. The orbital contents are unre markable. No fracture or bone destruction of the cranial vault. Included paranasal sinuses and mastoid air cell s are clear. There is aggressive appearing periosteal reaction of the right mandibular condyle and neck of the rig ht mandible, oriented perpendicular to the bone; malignancy is suspected. IMPRESSION: Aggressive periosteal reaction of the condyle and neck of the right mandible, raising co ncern for malignant lesion No significant intracranial abnormality Reviewed, dictated and finalized at Location A. Reviewed, dictated and finalized at location A. IMPRESSION: Aggressive periosteal reaction of the condyle and neck of the righ t mandible, raising concern for malignant lesion No significant intracranial abnormality
--- NOTE | 2020-04-22 12:25 | ECG_ITS ---
Measurements Intervals [place] Rate: 78 P: 12 [place]: 129 QRS: -1 QRSD: 93 T: 10 QT: 423 QTc: 482 Interpretive Statements SINUS RHYTHM MINIMAL Q WAVES- HIGH LATERAL LEADS BORDERLINE T WAVE ABNORMALITY- ANTERIOR LEADS BORDERLINE ECG Electronically Signed On 04-22-2020 15:52:38 CDT by Johnny Lake D.O.
--- NOTE | 2020-04-22 12:26 | ED.GENADULT ---
HPI - General Adult General Chief complaint: Weakness Stated complaint: weakness Time Seen by Provider: 04/22/20 12:15 Source: RN notes reviewed History of Present Illness HPI narrative: Patient presents emergency department from home for altered mental status. Patient states that for the past 2 days she has been having episodes where she will become confused. She states she will not know where she is become confused about her surroundings states these episodes last approximately 10 to 15 minutes. She states she does become dizzy during these episodes as well. Patient states that she also has had mild associated shortness of breath today that is now resolved as well as generalized weakness for the past 2 days. The patient is currently on chemotherapy for sigmoid colon cancer by Dr. Bueno and was supposed to get chemo today was too weak for chemo. She states she also feels like she may have a UTI and currently has ureteral stents in place and is followed at [facility] urology. She denies any fevers or chills chest pain abdominal pain nausea vomiting or any other symptoms patient denies any unilateral numbness or tingling Related Data Home Medications Medication Instructions Recorded Confirmed aripiprazole [Abilify] 5 mg PO QNOON 10/18/19 04/17/20 naproxen sodium 220 mg PO DAILY PRN 10/18/19 04/17/20 sertraline [Zoloft] 100 mg PO DAILY 10/18/19 04/17/20 ergocalciferol (vitamin D2) 50,000 unit PO WEEKLY 02/18/20 04/17/20 morphine 30 mg PO Q12H 02/18/20 04/17/20 ondansetron HCl [Zofran] 4 mg PO Q6H PRN 03/17/20 04/17/20 Allergies Allergy/AdvReac Type Severity Reaction Status Date / Time cinnamon Allergy Anaphylaxis Verified 04/22/20 12:27 erythromycin base Allergy Rash Verified 04/22/20 12:27 levofloxacin [From Levaquin] Allergy Hallucinati Verified 04/22/20 12:27 ng nutmeg oil (Myristica seed Allergy Anaphylaxis Verified 04/22/20 12:27 oil) all spice Allergy Anaphylaxis Uncoded 04/22/20 12:27 mace Allergy Anaphylaxis Uncoded 04/22/20 12:27 Review of Systems Review of Systems: Narrative: Gen.: Denies fevers or chills Eyes: Denies eye pain or visual change ENT: Denies congestion Respiratory: Denies shortness of breath or cough CV: Denies chest pain or palpitations GI: Denies abdominal pain nausea, emesis or diarrhea denies burning, urgency, frequency or hematuria Musculoskeletal: Denies back pain or muscle pain Neuro: See HPI Skin: Denies rash Except as documented, all other systems reviewed and negative [facility] Past Medical History Medical History Anemia (~08/2019) Bipolar disorder Bone metastasis (~01/2020) Colon cancer metastasized to bone (~12/2019) History of lung cancer in adulthood HTN (hypertension) Pathological fracture in neoplastic disease, pelvis, sequela SLE (systemic lupus erythematosus related syndrome) (Unknown) Social History Social History Social History: Patient was adopted therefore her family history is unknown. She does not drink alcohol, has never smoked, and does not do marijuana or drugs. She is no longer working due to her cancer and is trying to get on disability. She would like to appoint her Carlos Mello as her medical decision maker if needed. She would like to be a full code Smoking status: Never smoker Alcohol intake: never Substance use: never Gender identity (if verbalized by the patient): Female Spiritual care concerns: No Exam Narrative: Exam Narrative: APPEARANCE: No acute distress, nontoxic, resting in bed HEENT: Normocephalic, atraumatic, OMM, EYES: PERRL, EOMI NECK: Supple, nontender, full range of motion without pain, no meningismus RESPIRATORY: No respiratory distress, clear to auscultation bilaterally with no rhonchi wheezing or rales CARDIOVASCULAR: RRR s murmur ABDOMINAL: Soft, nontender, nondistended MUSCULOSKELET
[2020-04-22 13:41] LABS: Basophils Percent Auto 0.4 % (0.2-1.2); Eosinophils Absolute Auto 0.1 K/mm3 (0-0.3); Eosinophils Percent Auto 0.9 % (0-4.4); Hematocrit 24.8 % (37.0-47.0); Hemoglobin 7.6 g/dL (12.0-15.0); Immature Granulocyte Absolute 0.19 K/mm3 (0.00-0.031); Immature Granulocyte Percent A 2.3 % (0-0.5); Lymphocytes Percent Auto 6.1 % (18.3-44.2); Mean Corpuscular HGB Conc 30.6 g/dl (32-36); Mean Corpuscular Hemoglobin 25.9 pg (26-34); Mean Corpuscular Volume 84.6 fl (80-100); Mean Platelet Volume 10.3 fl (7.4-10.4); Monocytes Percent Auto 11.6 % (2.6-8.5); Neutrophils Absolute Auto 6.5 K/mm3 (1.3-6.7); Neutrophils Percent Auto 78.7 % (45.5-73.1); Platelet Count Result 149 k/mm3 (150-375); Red Blood Count 2.93 M/mm3 (4.2-5.4); Red Cell Distribution Width 20.1 % (11.5-14.5); White Blood Count 8.2 K/mm3 (4.5-10.0)
[2020-04-22] MEDS: SODIUM CHLORIDE 0.9% IV 1,000 ML 999 ML IV CONT (13:41)
[2020-04-22 13:52] LABS: INR 1.3; Prothrombin Time 16.1 Seconds (11.1-14.7)
[2020-04-22 13:54] LABS: Partial Thromboplastin Time 51.7 SECONDS (22.3-36.8)
[2020-04-22 14:01] LABS: Albumin Level 2.6 g/dL (3.5-5.1); Alkaline Phosphatase 123 U/L (38-126); Anion Gap 4 mmol/L (8-16); Aspartate Amino Transferase 17 U/L (14-36); Bilirubin,Total 0.7 mg/dL (0.2-1.3); Blood Urea Nitrogen 17 mg/dL (7-17); Calcium 6.3 mg/dL (8.4-10.2); Carbon Dioxide 28 mmol/L (22-30); Chloride 102 mmol/L (98-107); Estimated CRCL calculation 53 ml/min; Estimated Glomerular Filt Rate 40; Glucose 104 mg/dL (65-105); Potassium 4.3 mmol/L (3.4-5.0); Sodium 134 mmol/L (137-145)
[2020-04-22 14:13] LABS: Troponin I 0.014 ng/mL (0.000-0.034)
[2020-04-22 14:15] LABS: Add Urine Microscopic? YES; Appearance Urine Cloudy (Clear); Bacteria Urine Trace /hpf; Bilirubin Urine Negative (Negative); Blood Urine 2+ (Negative); Color Urine Yellow (Yellow); Glucose Urine UA Negative (Negative); Ketones Urine Negative (Negative); Leukocyte Esterase Ur 3+ LEU/UL (Negative); Mucus Urine Rare /lpf; Nitrate Urine Negative (Negative); Protein Urine 1+ mg/dL (Negative); RBC Urine 51-75 /hpf (0-2); Specific Grav Ur 1.012 (1.001-1.035); Squamous Epithelial Cell Urine Rare /hpf (Few); WBC Urine >75 /hpf
[2020-04-22 14:32] LABS: Alanine Aminotransferase < 6 U/L (4-35)
--- NOTE | 2020-04-22 18:51 | ADMGEN ---
This patient, Karina Rodriguez, was admitted to Medical Room 255-. Patient/family oriented to hospital policies and general routines including ID bracelet, bed and alarms, visiting hours, pain management, procedures, bathroom and other care routines, personal items, smoking policy, room service/diet, and visiting hours. Valuables list has been completed. Information on how to activate the Rapid Response Team has been discussed. Patient/Family are encouraged to report perceived risks to care and to ask questions if they do not understand what they are told or what they should do.
--- NOTE | 2020-04-22 22:36 | PM.IMHP ---
H&P: HPI History of Present Illness Date/Time: 04/22/20 21:00 Chief complaint: Confusion, weakness Narrative: Karina Rodriguez is a 49 year old female with a past medical history of obesity depression and recent diagnosis of stage IV colon cancer with metastatic disease to multiple bony sites, liver, pelvic lymph nodes and lung who presented to the ER due to increased weakness and confusion. The patient was diagnosed with his stage IV colon cancer January 2020. The patient had previously had iron deficiency anemia but had failed follow-up for colonoscopy. His she presented in February due to pelvic pain and imaging demonstrated pathologic fractures to the pelvis. She had PET scan performed in February that confirmed metastatic disease as discussed above. The patient received 1 dose of palliative chemotherapy with FOLFOX Avastin treatment on March 17, 2020. She presented to the hospital on April 03, 2020 due to weakness and fatigue and bleeding from her rectum. She received at least 3 units of blood transfusion and iron infusions. She was transferred to [facility] surgical ICU on April 04. The patient cannot recall much of what happened while she was at [facility]. She knows that she received iron infusions and blood transfusions. She does not know exactly when she was discharged from [facility]. During her hospitalization here in March she was treated for UTI and it appears that she was discharged home from [facility] on Bactrim On April 08. Her cultures on the had grown out coli that was for the most part sensitive to multiple antibiotics. She stated that she was also discharged on fluconazole and she just Completed her antibiotic course in the last couple of days. She thought she was also on fluconazole however I do not find a prescription record of this. Her imaging during her last hospitalization demonstrated hydronephrosis with bilateral nephrolithiasis and while she was at [facility] she had ureteral stents placed bilaterally. She still reports some right abdominal pain on palpation that she associates with stents. She denies having any fevers or chills since she was discharged from the hospital. She still has been having increased urinary urgency and frequency. She denies any hematuria or dysuria. She reports having decreased bowel movements but denies any significant loose stools or hematochezia. She has noticed that her thought process has been more cloudy over the last couple of days. She has been having difficulty concentrating. She has also noticed some disequilibrium of. She feels as if objects are distorted. She denies having any vertigo. She states she has a history of vertigo and notes 0 vertigo feels like. Since she was discharged from the outside hospital she has been mostly wheelchair bound. She has been sitting more and has subsequently developed some ulcerations on her buttocks. She has had some mild lower extremity edema that is been present since early March. She had a venous Doppler performed at that time that was negative. She has not noticed any increased swelling or extremity pain. She reports that her pelvis pain has improved since she received radiation therapy. She has not been having any cough, congestion or shortness of breath. She denies any difficulty with dysphagia odynophagia or aspiration . The patient does have chronic kidney disease stage 3 although she denied having any history kidney disease previously. Nephrology did evaluate the patient during her last hospitalization and CC is the patient had chronic kidney disease stage 3 with acute injury. The patient's creatinine currently appears to be around her baseline of 1.3. the patient is only a fair historian. She states that this is unusual for her. Review of Systems Review of Systems: Narrative: 12 systems were reviewed with pertinent positives and negatives per HPI. Except as documented in the HPI, all other systems were reviewed and are negative.
[2020-04-23] VITALS (19 sets, daily range): BP systolic 115–150; BP diastolic 68–88; PULSE 73–86; RESP 12–18; TEMP 36.1–37.2; O2SAT 98–100
[2020-04-23] MEDS: SODIUM CHLORIDE 0.9% IV 1,000 ML 75 ML IV CONT ×2 (00:09→20:59)
[2020-04-23 05:26] LABS: Basophils Percent Auto 0.4 % (0.2-1.2); Eosinophils Absolute Auto 0.1 K/mm3 (0-0.3); Eosinophils Percent Auto 2.4 % (0-4.4); Hematocrit 21.2 % (37.0-47.0); Immature Granulocyte Absolute 0.27 K/mm3 (0.00-0.031); Immature Granulocyte Percent A 5.1 % (0-0.5); Lymphocytes Absolute Auto 0.62 K/mm3 (0.9-3.2); Lymphocytes Percent Auto 11.6 % (18.3-44.2); Mean Corpuscular HGB Conc 30.2 g/dl (32-36); Mean Corpuscular Hemoglobin 25.4 pg (26-34); Mean Corpuscular Volume 84.1 fl (80-100); Monocytes Absolute Auto 0.7 K/mm3 (0.1-0.6); Monocytes Percent Auto 13.5 % (2.6-8.5); Neutrophils Absolute Auto 3.6 K/mm3 (1.3-6.7); Platelet Count Result 141 k/mm3 (150-375); Red Blood Count 2.52 M/mm3 (4.2-5.4); Red Cell Distribution Width 20.1 % (11.5-14.5); White Blood Count 5.3 K/mm3 (4.5-10.0)
[2020-04-23 05:45] LABS: Albumin Level 2.3 g/dL (3.5-5.1); Alkaline Phosphatase 105 U/L (38-126); Anion Gap 4 mmol/L (8-16); Aspartate Amino Transferase 13 U/L (14-36); Bilirubin,Total 0.4 mg/dL (0.2-1.3); Blood Urea Nitrogen 13 mg/dL (7-17); Calcium 5.8 mg/dL (8.4-10.2); Carbon Dioxide 25 mmol/L (22-30); Chloride 105 mmol/L (98-107); Estimated CRCL calculation 50 ml/min; Estimated Glomerular Filt Rate 37; Glucose 89 mg/dL (65-105); Potassium 3.7 mmol/L (3.4-5.0); Sodium 134 mmol/L (137-145)
[2020-04-23 05:52] LABS: Hemoglobin 6.4 g/dL (12.0-15.0)
[2020-04-23 05:53] LABS: Atypical Lymphocytes Present; Hypochromasia 2+ (NORMAL); Platelet Estimate Adequate (Adequate)
[2020-04-23 05:58] LABS: Alanine Aminotransferase < 4 U/L (4-35)
[2020-04-23] MEDS: SERTRALINE HCL 50 MG TABLET 100 MG PO (10:39)
[2020-04-23] MEDS: LIDOCAINE/PRILOCAINE 2.5-2.5% KIT 1 EACH TOPICAL (11:10)
[2020-04-23] MEDS: SODIUM CHLORIDE 0.9% IV 250 ML 30 ML IV CONT (11:57)
[2020-04-23 12:16] LABS: Basophils Percent Auto 0.3 % (0.2-1.2); Eosinophils Absolute Auto 0.1 K/mm3 (0-0.3); Eosinophils Percent Auto 1.9 % (0-4.4); Immature Granulocyte Percent A 4.7 % (0-0.5); Lymphocytes Absolute Auto 0.64 K/mm3 (0.9-3.2); Mean Corpuscular HGB Conc 30.5 g/dl (32-36); Mean Corpuscular Hemoglobin 25.7 pg (26-34); Mean Corpuscular Volume 84.3 fl (80-100); Mean Platelet Volume 10.5 fl (7.4-10.4); Monocytes Absolute Auto 0.7 K/mm3 (0.1-0.6); Monocytes Percent Auto 10.7 % (2.6-8.5); Neutrophils Absolute Auto 4.6 K/mm3 (1.3-6.7); Neutrophils Percent Auto 72.4 % (45.5-73.1); Platelet Count Result 155 k/mm3 (150-375); Red Blood Count 2.61 M/mm3 (4.2-5.4); Red Cell Distribution Width 19.8 % (11.5-14.5); White Blood Count 6.4 K/mm3 (4.5-10.0)
[2020-04-23 12:21] LABS: Hemoglobin 6.7 g/dL (12.0-15.0)
[2020-04-23] MEDS: ARIPiprazole 5 MG TABLET PO (12:26)
--- NOTE | 2020-04-23 14:44 | PCOTNOTE ---
OT evaluation attempted. Patient receiving blood at this time. Will attempt OT evaluation at later time.
--- NOTE | 2020-04-23 15:12 | PM.IMPN ---
Progress Note: A&P Assessment and Plan (1) UTI (urinary tract infection): Code(s): N39.0 - Urinary tract infection, site not specified Status: Acute Assessment and Plan: Continue empiric IV ceftriaxone while awaiting urine and blood cultures. Patient recently underwent bilateral ureteral stent placement at [facility] 2 weeks ago. Records faxed from [facility] reviewed but do not indicate details of this procedure, presumably done 04/05 after she was transferred there from [place]. At time of discharge 04/08 from [facility], she was prescribed 2 week course of ciprofloxacin and fluconazole for UTI. Records received did not include urine culture results. (2) Acute alteration in mental status: Code(s): R41.82 - Altered mental status, unspecified Status: Acute Assessment and Plan: Improved today. Patient describes difficulty concentrating and fog-brain . She is alert and oriented with good insight today. Will monitor. (3) Chronic kidney disease, stage 3: Code(s): N18.3 - Chronic kidney disease, stage 3 (moderate) Status: Acute Assessment and Plan: Creatinine appears near her baseline. Will monitor renal function. (4) Anemia: Code(s): D64.9 - Anemia, unspecified Status: Acute Assessment and Plan: Hgb down to 6.4 on arrival, receiving 2 units packed RBC today. She denies any frieda hematochezia or melena. History of iron deficiency anemia. Recent GI bleeding suspect related to her malignancy. She was recently admitted here 3 weeks ago and was transferred to [facility] colorectal surgery 04/03/20 for lower GI bleeding. Dr Bueno following - appreciate recommendations. Monitor CBC and transfuse to a stable hemoglobin. (5) Colon cancer metastasized to bone: Onset Date: ~01/2020 Code(s): C18.9 - Malignant neoplasm of colon, unspecified; C79.51 - Secondary malignant neoplasm of bone Status: Acute Assessment and Plan: Follows with Dr Bueno for metastatic colon cancer with bone, liver, and lung involvement. She had 1 dose of palliative chemotherapy FOLFOX Avastin on 03/17/2020. She has had other doses of chemotherapy scheduled, but notes she has been too weak to receive them. Discussed new osteoblastic lesion to right mandibular neck with patient. Discussed MRI results. Appreciate Dr. Bueno's input. Subjective Date/time seen: 04/23/20 1415 Interval history: Ms. Rodriguez is a pleasant but very unfortunate 49yo F with metastatic stage IV colon cancer admitted for anemia. She reports feeling very tired, weak, fatigued today. Not in any pain at present. She denies any chest pain or shortness of breath. She does not have much of an appetite but denies nausea or vomiting. Review of Systems Review of Systems: Narrative: Twelve systems were reviewed with pertinent positives and negatives as per HPI. Exam Narrative: Exam Narrative: General: Female resting comfortably supine in bed in no acute distress. HEENT: Normocephalic, EOMI, oral mucosa tacky. Cardiovascular: Rate and rhythm are regular. Respiratory: Lungs clear to auscultation all tee. Non-labored breathing. Tolerating room air. Abdomen: Soft, non-tender, non-distended, bowel sounds present. Extremities: Peripheral pulses intact. No edema. Neuro: No focal neurological deficits. Speech is clear. Objective Data Vital Signs Vital Signs: Last Vital Signs Temp 97 F L 04/23/20 16:42 Pulse 84 04/23/20 16:42 Resp 18 04/23/20 16:42 BP 139/88 04/23/20 16:42 Pulse Ox 100 04/23/20 16:42 Intake/Output Intake/Output: Intake & Output 04/20/20 04/21/20 04/22/20 04/23/20 23:59 23:59 23:59 23:59 Intake Total 1050 1120 Balance 1050 1120 Meds/Results Medications
[2020-04-23] MEDS: CENTRAL LINE FLUSH 10 ML IV PUSH ×2 (15:40→21:00)
--- NOTE | 2020-04-23 16:57 | PDONCCN ---
HPI - Date of Consult Date/Time: 04/23/20 16:57 Requesting Physician: MABLE Sequeira Primary Care Provider: Jenny Werner, ASSOCIATE CONSULTING ENGINEER - Consult Narrative Reason for consult: Metastatic colon cancer. Narrative: Karina Rodriguez is a 49 year old female This is a pleasant unfortunate 49-year-old slightly obese female diagnosed with metastatic colon cancer status post right ischial tuberosity CT-guided biopsy on February 28, 2020. She received for sound of chemotherapy with FOLFOX Avastin on March 17, 2020. She also received palliative radiation therapy to the bone metastasis on March 10, 2020. She came into the hospital on April 03, 2020 due to extreme tiredness and fatigue and bleeding from the rectum. She received 3 units of packed red blood cell and subsequently transferred to [facility]. According to the patient she was diagnosed with renal stone and had ureteral stent placement. She now came back into the hospital with another episode of extreme tiredness and fatigue. Her hemoglobin was found to be 6.4. She denies any bleeding including melena and hematochezia. She has been eating poorly. She denies any abdominal pain. She denies any headaches and seizures. She has not received any further chemotherapy after the 1st round in early March. Review of Systems - Review of Systems All systems reviewed & are unremarkable except as noted in HPI and [facility] Medical History: Medical History (Last Updated 04/22/20 @ 22:59 by Paty Oconnor DO) Anemia Onset Date: ~08/2019 Bipolar disorder Chronic kidney disease, stage 3 Colon cancer metastasized to bone Onset Date: ~01/2020 Also metastases to liver and lung status post 10 radiation treatments to her right ischium and left acetabulum 03/11/2020 through 03/26/2020; FOLFOX Avastin treatment March 17 2020 HTN (hypertension) Iron deficiency anemia Kidney stones Pathological fracture in neoplastic disease, pelvis, sequela SLE (systemic lupus erythematosus related syndrome) Onset Date: Unknown Surgical History: Surgical History (Last Updated 04/22/20 @ 22:56 by Paty Oconnor DO) History of adenoidectomy History of hysterectomy History of lithotripsy S/P ureteral stent placement bilateral March 2020 Family History: Family History (Last Updated 04/22/20 @ 23:01 by Paty Oconnor DO) Sibling , due to complications of C diff colitis. Inflammatory bowel disease - Social History Social History: Social History (Last Updated 04/22/20 @ 23:03 by Paty Oconnor, ) Gender Identity: Gender identity (if verbalized by the patient): Female Sexual Orientation: Sexual Orientation (if Verbalized by the Patient): Straight or Heterosexual Alcohol Use: Alcohol intake: never Substance Use: Substance use: never Substance use type: does not use Others: Spiritual care concerns: No Smoking Status: Smoking status: Never smoker Meds Home Medications Medication Instructions Recorded Confirmed Type aripiprazole [Abilify] 5 mg PO QNOON 10/18/19 04/22/20 History naproxen sodium 220 mg PO DAILY PRN 10/18/19 04/22/20 History sertraline [Zoloft] 100 mg PO DAILY 10/18/19 04/22/20 History ergocalciferol (vitamin D2) 50,000 unit PO WEEKLY 02/18/20 04/22/20 History morphine 30 mg PO Q12H 02/18/20 04/22/20 History hydrocodone-acetaminophen [Lorcet 1 tablet PO Q6H PRN #30 tablet 03/10/20 04/22/20 Rx HD] ondansetron HCl [Zofran] 4 mg PO Q6H PRN 03/17/20 04/22/20 History Allergies Allergy/AdvReac Type Severity Reaction Status Date / Time cinnamon Allergy Anaphylaxis Verified 04/22/20 12:27 clove Allergy Anaphylaxis Verified 04/23/20 09:01 erythromycin base Allergy Rash Verified 04/22/20 12:27 levofloxacin [From Levaquin] Allergy Hallucinati Verified 04/22/20 12:27 ng nutmeg oil (Myristica seed Allergy Anaphylaxis Verified 04/22/20 12:27 oil) pepper (genus
[2020-04-23] MEDS: ONDANSETRON INJ 4 MG/2 ML VIAL IV PUSH (18:50)
[2020-04-24] VITALS (7 sets, daily range): BP systolic 146–152; BP diastolic 72–81; PULSE 69–77; RESP 12–20; TEMP 36.3–36.7; O2SAT 100
[2020-04-24] MEDS: CENTRAL LINE FLUSH 10 ML IV PUSH ×3 (04:53→20:27)
[2020-04-24 05:01] LABS: Basophils Percent Auto 0.5 % (0.2-1.2); Eosinophils Absolute Auto 0.1 K/mm3 (0-0.3); Eosinophils Percent Auto 2.1 % (0-4.4); Hemoglobin 8.9 g/dL (12.0-15.0); Immature Granulocyte Absolute 0.36 K/mm3 (0.00-0.031); Immature Granulocyte Percent A 5.8 % (0-0.5); Lymphocytes Absolute Auto 0.62 K/mm3 (0.9-3.2); Lymphocytes Percent Auto 9.9 % (18.3-44.2); Mean Corpuscular HGB Conc 31.8 g/dl (32-36); Mean Corpuscular Hemoglobin 27.1 pg (26-34); Mean Corpuscular Volume 85.4 fl (80-100); Mean Platelet Volume 9.3 fl (7.4-10.4); Monocytes Absolute Auto 0.8 K/mm3 (0.1-0.6); Monocytes Percent Auto 12.8 % (2.6-8.5); Neutrophils Absolute Auto 4.3 K/mm3 (1.3-6.7); Neutrophils Percent Auto 68.9 % (45.5-73.1); Platelet Count Result 141 k/mm3 (150-375); Red Blood Count 3.28 M/mm3 (4.2-5.4); Red Cell Distribution Width 17.9 % (11.5-14.5); White Blood Count 6.3 K/mm3 (4.5-10.0)
[2020-04-24 05:14] LABS: Albumin Level 2.3 g/dL (3.5-5.1); Alkaline Phosphatase 100 U/L (38-126); Anion Gap 4 mmol/L (8-16); Aspartate Amino Transferase 16 U/L (14-36); Bilirubin,Total 0.5 mg/dL (0.2-1.3); Blood Urea Nitrogen 12 mg/dL (7-17); Calcium 5.7 mg/dL (8.4-10.2); Carbon Dioxide 24 mmol/L (22-30); Chloride 106 mmol/L (98-107); Estimated CRCL calculation 57 ml/min; Estimated Glomerular Filt Rate 44; Glucose 86 mg/dL (65-105); Magnesium 1.9 mg/dL (1.6-2.3); Potassium 3.6 mmol/L (3.4-5.0); Sodium 134 mmol/L (137-145)
[2020-04-24 05:22] LABS: Alanine Aminotransferase < 6 U/L (4-35)
[2020-04-24] MEDS: ONDANSETRON INJ 4 MG/2 ML VIAL IV PUSH (06:56)
--- NOTE | 2020-04-24 08:34 | PC.NURSE ---
Patient c/o nausea. Received Zofran earlier this morning with minimal relief. States she cannot take her scheduled Zoloft at this point because she thinks she will throw it up. Called Rachelle HAILE regarding same. Orders received.
[2020-04-24] MEDS: PROCHLORPERAZINE EDISYLATE 10 MG/2 ML VIAL IV PUSH (08:44)
--- NOTE | 2020-04-24 08:45 | PCOTNOTE ---
Attempted OT evaluation this aM, pt reports feeling to nauseous to participate in OT at this time, will attempt at later time. RN aware.
[2020-04-24] MEDS: SODIUM CHLORIDE 0.9% IV 1,000 ML 75 ML IV CONT (10:25)
--- NOTE | 2020-04-24 13:22 | PM.IMPN ---
Progress Note: A&P Assessment and Plan (1) UTI (urinary tract infection): Qualifiers: Urinary tract infection type: site unspecified Hematuria presence: without hematuria Qualified Code(s): N39.0 - Urinary tract infection, site not specified Code(s): N39.0 - Urinary tract infection, site not specified Status: Acute Assessment and Plan: Continue empiric IV ceftriaxone for now. Urine culture shows no growth however she is symptomatic after ureteral stent placement I feel it is best to continue with antibiotics. Patient recently underwent bilateral ureteral stent placement at [facility] 2 weeks ago. Records faxed from [facility] reviewed but do not indicate details of this procedure, presumably done 04/05 after she was transferred there from [place]. At time of discharge 04/08 from [facility], she was prescribed 2 week course of ciprofloxacin and fluconazole for UTI; she is unsure if she took these. Records received did not include urine culture results. (2) Chronic kidney disease, stage 3: Code(s): N18.3 - Chronic kidney disease, stage 3 (moderate) Status: Acute Assessment and Plan: Creatinine appears near her baseline. Will monitor renal function. (3) Anemia: Qualifiers: Anemia type: unspecified type Qualified Code(s): D64.9 - Anemia, unspecified Code(s): D64.9 - Anemia, unspecified Status: Acute Assessment and Plan: Hgb down to 6.4 on arrival, received 2 units packed RBC yesterday. She denies any frieda hematochezia or melena. History of iron deficiency anemia. Recent GI bleeding suspect related to her malignancy. She was recently admitted here 3 weeks ago and was transferred to [facility] colorectal surgery 04/03/20 for lower GI bleeding. Dr Bueno following - appreciate recommendations. Discussed case with Dr Bueno this afternoon. Monitor CBC and transfuse as needed. Hgb is stable at 8.9 today. (4) Colon cancer metastasized to bone: Onset Date: ~01/2020 Code(s): C18.9 - Malignant neoplasm of colon, unspecified; C79.51 - Secondary malignant neoplasm of bone Status: Acute Assessment and Plan: Follows with Dr Bueno for metastatic colon cancer with bone, liver, and lung involvement. She had 1 dose of palliative chemotherapy FOLFOX Avastin on 03/17/2020. She has had other doses of chemotherapy scheduled, but notes she has been too weak to receive them. Discussed new osteoblastic lesion to right mandibular neck with patient. Discussed MRI results - could represent early metastasis to brain. Subjective Date/time seen: 04/24/20 1200 Interval history: Ms. Rodriguez is a pleasant but very unfortunate 49yo F with metastatic stage IV colon cancer admitted for anemia. She reports feeling very tired, weak, fatigued today but slightly improved from yesterday. Not in any pain at present but describes pain in her feet when she goes to stand. She denies any chest pain or shortness of breath. She does not have much of an appetite but denies nausea or vomiting. Review of Systems Review of Systems: Narrative: Twelve systems were reviewed with pertinent positives and negatives as per HPI. Exam Narrative: Exam Narrative: General: Female resting comfortably supine in bed in no acute distress. HEENT: Normocephalic, EOMI, oral mucosa tacky. Cardiovascular: Rate and rhythm are regular. Respiratory: Lungs clear to auscultation all tee. Non-labored breathing. Tolerating room air. Abdomen: Soft, non-tender, non-distended, bowel sounds present. Extremities: Peripheral pulses intact. No edema. Neuro: No focal neurological deficits. Speech is clear. Objective Data Vital Signs Vital Signs: Last Vital Signs Temp 97.7 F 04/24/20 14:00 Pulse 76 04/24/20 14:00 Resp 14 04/24/20 1
--- NOTE | 2020-04-24 15:46 | WPDONCPN ---
Progress Note: A/P - Additional Plan Metastatic colon cancer with bone and liver involvement. Patient only received 1 round of chemotherapy. Further chemotherapy was on hold due to patient's poor performance status. She will follow-up with us as an outpatient to resume chemotherapy once is stable. Anemia. This is multifactorial with major component of GI bleed. She denies any further bleeding. Hemoglobin has improved after blood transfusion. She remains tired and fatigued. If hemoglobin remains stable she can be discharged home. If hemoglobin drops and she will be a candidate for transfer to [facility] for embolization therapy to stop GI bleed. She does not seem like a good candidate for surgery at this time. This has been discussed with hospitalist team. - Time Spent With Patient Total time spent is greater than 50% in coordination of care (as documented) at patient's floor/unit and/or counseling patient: 15 - 25 minutes Subjective Interval history: Metastatic colon cancer Anemia secondary to GI bleed Review of Systems - Review of Systems Patient is feeling slightly better. She had a bowel movement without any bleeding. She has been eating better. Denies any abdominal pain. Remains tired and fatigued. Exam Vital signs: Temp Pulse Resp BP Pulse Ox 36.5 C 76 14 146/81 H 100 04/24/20 14:00 04/24/20 14:00 04/24/20 14:00 04/24/20 14:00 04/24/20 14:00 Narrative: Lungs are clear to auscultation bilaterally Cardiovascular regular rate rhythm no murmurs Abdomen soft nontender nondistended bowel sounds are positive Extremities no edema PN: Objective Data - Labs CBC & Chem 7: 04/24/20 04:49 04/24/20 04:49 Labs: Laboratory Results - last 24 hr 04/23/20 04/24/20 04/24/20 06:28 04:49 04:49 WBC 6.3 RBC 3.28 L Hgb 8.9 L Hct 28.0 L MCV 85.4 MCH 27.1 D MCHC 31.8 L RDW 17.9 H Plt Count 141 L MPV 9.3 Immature Gran % (Auto) 5.8 H Neut % (Auto) 68.9 Lymph % (Auto) 9.9 L [place] % (Auto) 12.8 H Eos % (Auto) 2.1 Baso % (Auto) 0.5 Lymph # (Auto) 0.62 L [place] # (Auto) 0.8 H Eos # (Auto) 0.1 Baso # (Auto) 0.0 Abs Immat Gran (auto) 0.36 H Absolute Neuts (auto) 4.3 Absolute Nucleated RBC 0.0 Nucleated RBC % 0.0 Sodium 134 L Potassium 3.6 Chloride 106 Carbon Dioxide 24 Anion Gap 4 L BUN 12 Creatinine 1.30 H Estim Creat Clear Calc 57 Estimated GFR 44 L Glucose 86 Calcium 5.7 L Magnesium 1.9 Total Bilirubin 0.5 AST 16 ALT < 6 Alkaline Phosphatase 100 Total Protein 6.0 L Albumin 2.3 L Blood Type O Positive Antibody Screen Negative Crossmatch See Detail
[2020-04-25] MEDS: SODIUM CHLORIDE 0.9% IV 1,000 ML 75 ML IV CONT (00:18)
[2020-04-25] MEDS: CENTRAL LINE FLUSH 10 ML IV PUSH ×2 (05:40→14:15)
[2020-04-25 05:42] VITALS: BP 153/73; PULSE 71; RESP 20; TEMP 36.2; O2SAT 100
[2020-04-25 06:09] LABS: Basophils Percent Auto 0.6 % (0.2-1.2); Eosinophils Absolute Auto 0.1 K/mm3 (0-0.3); Hematocrit 26.9 % (37.0-47.0); Hemoglobin 8.6 g/dL (12.0-15.0); Immature Granulocyte Absolute 0.26 K/mm3 (0.00-0.031); Immature Granulocyte Percent A 4.8 % (0-0.5); Lymphocytes Absolute Auto 0.59 K/mm3 (0.9-3.2); Lymphocytes Percent Auto 10.8 % (18.3-44.2); Mean Corpuscular Hemoglobin 27.1 pg (26-34); Mean Corpuscular Volume 84.9 fl (80-100); Mean Platelet Volume 9.7 fl (7.4-10.4); Monocytes Absolute Auto 0.8 K/mm3 (0.1-0.6); Monocytes Percent Auto 14.1 % (2.6-8.5); Neutrophils Absolute Auto 3.7 K/mm3 (1.3-6.7); Neutrophils Percent Auto 67.7 % (45.5-73.1); Platelet Count Result 153 k/mm3 (150-375); Red Blood Count 3.17 M/mm3 (4.2-5.4); Red Cell Distribution Width 17.9 % (11.5-14.5); White Blood Count 5.5 K/mm3 (4.5-10.0)
[2020-04-25 06:19] LABS: Anion Gap 5 mmol/L (8-16); Blood Urea Nitrogen 10 mg/dL (7-17); Calcium 5.3 mg/dL (8.4-10.2); Carbon Dioxide 22 mmol/L (22-30); Chloride 108 mmol/L (98-107); Estimated CRCL calculation 61 ml/min; Estimated Glomerular Filt Rate 48; Glucose 84 mg/dL (65-105); Magnesium 1.8 mg/dL (1.6-2.3); Potassium 3.3 mmol/L (3.4-5.0); Sodium 135 mmol/L (137-145)
[2020-04-25] MEDS: PROCHLORPERAZINE EDISYLATE 10 MG/2 ML VIAL IV PUSH (07:38)
[2020-04-25] MEDS: SERTRALINE HCL 50 MG TABLET 100 MG PO (08:19)
--- NOTE | 2020-04-25 10:54 | PM.IMPN ---
Subjective Date/time seen: 04/25/20 0900 Objective Data Vital Signs Vital Signs: Vital Signs - 24 hr 04/24/20 12:00 04/24/20 14:00 04/24/20 22:00 Temperature 97.7 F 97.3 F L Pulse Rate 77 76 73 Respiratory Rate 14 20 Blood Pressure 146/81 H 151/72 H Pulse Oximetry 100 100 04/25/20 05:42 Temperature 97.2 F L Pulse Rate 71 Respiratory Rate 20 Blood Pressure 153/73 H Pulse Oximetry 100 Intake/Output Intake/Output: Intake & Output 04/22/20 04/23/20 04/24/20 04/25/20 23:59 23:59 23:59 23:59 Intake Total 1050 3056 4290 390 Balance 1050 3056 4290 390 Meds/Results Medications: Active Medications Generic Name Dose Route Start Last Admin Trade Name Freq PRN Reason Stop Dose Admin Hydrocodone Bitart/Acetaminophen 1 tab 04/23/20 08:06 [place] 10-325 Mg PO Q6H PRN Pain Rated 7-10 Aripiprazole 5 mg 04/23/20 12:00 04/24/20 13:38 Abilify PO Not Given 1200 MARK Heparin Sodium (Beef Lung) 50 units 04/24/20 09:00 04/25/20 08:22 Heparin Flush 50 Units/5 Ml IV PUSH Not Given QAM MARK Heparin Sodium (Beef Lung) 50 units 04/23/20 10:12 Heparin Flush 50 Units/5 Ml IV PUSH PRN PRN after intermittent infusion Heparin Sodium (Beef Lung) 50 units 04/23/20 10:12 Heparin Flush 50 Units/5 Ml IV PUSH PRN PRN after blood draws Heparin Sodium (Porcine) 500 units 04/23/20 10:12 Heparin Sod Flush 100 Units/Ml IV PUSH PRN PRN see comments below Ceftriaxone Sodium/Dextrose 1 gm in 50 mls @ 100 mls/hr 04/23/20 14:00 04/24/20 13:50 Rocephin 1 Gm/D5w 50 Ml IVPB Infused Q24H MARK Infusion Sodium Chloride 1,000 mls @ 75 mls/hr 04/22/20 23:45 04/25/20 00:18 Normal Saline Iv IV CONT 75 mls/hr .[id number] MARK Administration Potassium Chloride 500 mls @ 125 mls/hr 04/25/20 08:35 04/25/20 09:33 Kcl 40 Meq/D5w 500 Ml Peripheral IVPB 04/25/20 12:34 125 mls/hr ONCE ONE Administration Morphine Sulfate 30 mg 04/23/20 10:57 Ms Contin PO Q12H PRN Breakthrough Pain Prochlorperazine Edisylate 10 mg 04/24/20 08:35 04/25/20 07:38 Compazine IV PUSH 10 mg Q6H PRN Administration Nausea And Vomiting Sertraline HCl 100 mg 04/23/20 09:00 04/25/20 08:19 Zoloft PO 100 mg DAILY MARK Administration Sodium Chloride 10 ml 04/23/20 14:00 04/25/20 05:40 Central Line Flush IV PUSH 10 ml Q8HR MARK Administration Radiology Results: ITS Impressions Head CT 04/22/20 12:55 IMPRESSION: Aggressive periosteal reaction of the condyle and neck of the right mandible, raising concern for malignant lesion No significant intracranial abnormality Chest X-Ray 04/22/20 13:08 IMPRESSION: No significant change since 02/21/2020 Brain MRI 04/23/20 10:02 IMPRESSION: 1. A few scattered nonspecific T2 hyperintense white matter lesions which remains within normal limits for age although in the setting of known metastatic disease, metastatic foci cannot be excluded. 2. Likely metastatic bone lesion with prominent surrounding periosteal reaction at the neck of the right mandible. Labs Labs: Laboratory Results - last 24 hr 04/25/20 04/25/20 05:40 05:40 WBC 5.5 RBC 3.17 L Hgb 8.6 L Hct 26.9 L MCV 84.9 MCH 27.1 MCHC 32.0 RDW 17.9 H Plt Count 153 MPV 9.7 Immature Gran % (Auto) 4.8 H Neut % (Auto) 67.7 Lymph % (Auto) 10.8 L [place] % (Auto) 14.1 H Eos % (Auto) 2.0 Baso % (Auto) 0.6 Lymph # (Auto) 0.59 L [place] # (Auto) 0.8 H Eos # (Auto) 0.1 Baso # (Auto) 0.0 Abs Immat Gran (auto) 0.26 H Absolute Neuts (auto) 3.7 Absolute Nucleated RBC 0.0 Nucleated RBC % 0.0 Sodium 135 L Potassium 3.3 L Chloride 108 H Carbon Dioxide 22 Anion Gap 5 L BUN 10 Creatinine 1.20 H Estim Creat Clear Calc 61 Estimated GFR 48 L Glucose 84 Calcium 5.3 L Magnesium 1.8 Quality VTE Prophylaxis VTE prophylaxis:
[2020-04-25] MEDS: ARIPiprazole 5 MG TABLET PO (12:39)
--- NOTE | 2020-04-25 13:02 | PM.DS ---
DS: Admitting Diagnosis Admitting Diagnosis Admitting Diagnosis: UTI, Metabolic encephalopathy colon cancer with DS: Discharge Diagnosis Discharge Diagnosis (1) UTI (urinary tract infection): Qualifiers: Hematuria presence: without hematuria Urinary tract infection type: site unspecified Qualified Code(s): N39.0 - Urinary tract infection, site not specified Code(s): N39.0 - Urinary tract infection, site not specified Status: Acute Assessment and Plan: Date of Admission: 04/22/20 Date of Discharge/DOS: 04/25/20 Ms. Rodriguez is a pleasant but very unfortunate 50yo F with recent diagnosis of stage IV colon cancer with metastasis to bone, lung, liver; chronic kidney disease, anemia, who presented to the ED for evaluation of weakness and fatigue. Hgb was 6.4 on arrival and she received 2 units packed RBC. H&H remain low but stable at 8.6/26.9% day of discharge. CT and MRI brain (due to confusion that is resolved after transfusion) demonstrated a new metastatic lesion to right mandible and scattered hyperdensities that could represent early metastasis to the brain. She was recently admitted here to [facility] a few weeks ago with significant GI bleeding. At that time, she received 3 units packed RBC before transferring to the ICU and eventually to [facility] for colorectal surgery evaluation. The records I received from Center are minimal however they indicate she underwent placement of bilateral ureteral stents due to bilateral hydronephrosis and possibly ureteral stones. She still has these stents in now. She was prescribed oral antibiotics and antifungal upon discharge from [facility] 2 weeks ago for treatment of UTI, she is unsure if she took these. Despite multiple attempts I am not able to obtain her urine culture or procedure note from Center. I have no colorectal records from Center. Urine culture here is negative but given her recent stenting and urinary urgency, will cover with oral cefdinir at discharge. She received IV ceftriaxone while hospitalized here. She follows with Dr Bueno, see below. She has completed [address] sessions [address] radiation with Dr Nicole, completed 1 dose of FOLFOX Avastin, has not been able to get more chemotherapy yet due to weakness. Dr Bueno feels she will eventually benefit from surgery consultation and more conservatively, even an embolization procedure to help stop the bleeding in her colon metastasis; He has colleagues at [facility] that can do this. Given that she is not having any frieda GI bleeding and hgb is stable, he feels this does not require hospital transfer to [facility] at this moment, but may in the future. She is significantly weak. Prior to hospital admission she is mostly using a wheelchair at home. She is unable to stand or really walk here at the hospital either despite attempts from PT/OT. Home health is arranged and she is given information on private duty caretakers, waiting for hospital bed to be delivered. Patient given return to ED instructions/call Dr Bueno's office for questions or concerns. She is hemodynamically stable for discharge 04/25/20 with instructions to follow up with Dr Bueno's office this week. Should patient return to ED; call Dr Bueno. It is likely at that time she may benefit from transfer to [facility] for higher level of care. UTI suspected - treated with IV rocephin here and discharged with oral cefdinir. Urine culture shows no growth however she is symptomatic after ureteral stent placement I feel it is best to continue with antibiotics. Patient recently underwent bilateral ureteral stent placement at [facility] 2 weeks ago. Records faxed from [facility] reviewed but do not indicate details of this procedure, presumably done 04/05 after she was transferred there from [place]. At time of discharge 04/08 from [facility], she was prescribed 2 week course of ciprofloxacin and fluconazole for UTI; she is unsure if she took these.
[2020-04-25 14:00] VITALS: BP 145/63; PULSE 73; RESP 16; TEMP 36.3; O2SAT 100
[2020-04-25] MEDS: HEPARIN SOD FLUSH 500 UNITS/5 ML SYRINGE IV PUSH (15:00)
--- NOTE | 2020-05-01 09:09 | PC.NURSE ---
Blood cx are negative
== END 2020-04-25 18:00 | disposition home health service (06) ==
LOC: ANHED 14:53 → ANH2MED 16:46
PROVIDERS: Admitting Provider Internal Medicine; Emergency Provider Emergency Medicine; PCP Nurse Practitioner Adult Health; Visit Provider Physician Assistant
DX: N39.0 Urinary tract infection, site not specified (principal); C18.7 Malignant neoplasm of sigmoid colon; L89.322 Pressure ulcer of left buttock, stage 2; L89.312 Pressure ulcer of right buttock, stage 2; C78.7 Secondary malignant neoplasm of liver and intrahepatic bile duct; C79.51 Secondary malignant neoplasm of bone; C78.00 Secondary malignant neoplasm of unspecified lung; I12.9 Hypertensive chronic kidney disease with stage 1 through stage 4 chronic kidney disease, or unspecified chronic kidney disease; N18.3 Chronic kidney disease, stage 3 (moderate); D50.9 Iron deficiency anemia, unspecified; M32.9 Systemic lupus erythematosus, unspecified; E66.9 Obesity, unspecified; Z68.39 Body mass index [BMI] 39.0-39.9, adult; F31.9 Bipolar disorder, unspecified; Z87.442 Personal history of urinary calculi
CPT/HCPCS: 36415; 36430; 70450; 70551; 71045; 80048; 80053; 81001; 83605; 83735; 84484; 85025; 85610; 85730; 86850; 86900; 86901; 86923; 87040; 87086; 93005; 96361; 96365; 96366; 96367; 96375; 97110; 97162; 97165; 97530; 99285; A9270; G0378; J0696; J0780; J2405; J3480; J7030; J7050; P9016

== ENCOUNTER 2020-04-29 11:58 | Emergency (ER) | payer OTHER, SELFPAY ==
[2020-04-29] VITALS (9 sets, daily range): BP systolic 96–168; BP diastolic 66–95; PULSE 70–91; RESP 16–22; TEMP 36.6–36.8; O2SAT 98–100
--- NOTE | ~2020-04-29 | XR_ITS ---
EXAMINATION: XR chest 2V EXAM DATE: 04/29/2020 13:45 INDICATION: Shortness of air, dizziness and confusion. TECHNIQUE: Frontal and lateral projections of the chest obtained and reviewed. Comparison is made to prior examination from 04/22/2020. FINDINGS: There is a right-sided portacatheter which has been accessed, line is intact. There is montserrat ear density suspected to be subsegmental right upper lobe anterior segmental atelectasis along the mi nor fissure, unchanged from prior study but better evaluated with the lateral projection on this exam . Chronic right-sided volume loss with elevated right hemidiaphragm. The lungs are otherwise clear. There are no pleural effusions. Cardiac silhouette is prominent but magnified on this AP technique. There is no pneumothorax suspected. The bones and soft tissues are unremarkable. There is no significant interval change. IMPRESSION: Right upper lobe subsegmental atelectasis unchanged. Reviewed, dictated and finalized at location A.
--- NOTE | 2020-04-29 12:26 | ED.SOB ---
HPI - SOB/Dyspnea General Chief Complaint: Shortness of Breath/Dyspnea Stated Complaint: SOB Time Seen by Provider: 04/29/20 12:00 History of Present Illness HPI Narrative: Patient is a 50-year-old female with history of metastatic colon cancer presents the ER with shortness of breath. Sudden onset 30 minutes ago. Feels like she not catch her breath however she is satting 98% on room air. She has no chest pain. No runny nose/sore throat/productive cough. Has not had similar symptoms previously. In the last week patient did receive a blood transfusion however a low hemoglobin. Patient is found no alleviating factors. Related Data Home Medications Medication Instructions Recorded Confirmed aripiprazole [Abilify] 5 mg PO QNOON 10/18/19 04/22/20 naproxen sodium 220 mg PO DAILY PRN 10/18/19 04/22/20 sertraline [Zoloft] 100 mg PO DAILY 10/18/19 04/22/20 ergocalciferol (vitamin D2) 50,000 unit PO WEEKLY 02/18/20 04/22/20 morphine 30 mg PO Q12H 02/18/20 04/22/20 ondansetron HCl [Zofran] 4 mg PO Q6H PRN 03/17/20 04/22/20 Allergies Allergy/AdvReac Type Severity Reaction Status Date / Time cinnamon Allergy Anaphylaxis Verified 04/29/20 12:51 clove Allergy Anaphylaxis Verified 04/29/20 12:51 erythromycin base Allergy Rash Verified 04/29/20 12:51 levofloxacin [From Levaquin] Allergy Hallucinati Verified 04/29/20 12:51 ng nutmeg oil (Myristica seed Allergy Anaphylaxis Verified 04/29/20 12:51 oil) pepper (genus Capsicum) Allergy Anaphylaxis Verified 04/29/20 12:51 all spice Allergy Anaphylaxis Uncoded 04/29/20 12:51 mace Allergy Anaphylaxis Uncoded 04/29/20 12:51 Review of Systems Review of Systems: All systems reviewed & are unremarkable except as noted in HPI and below Constitutional: Constitutional: Denies chills, Denies fever(s) and Denies weakness ENT: Denies nasal congestion and Denies sore throat Cardiovascular: Cardiovascular: Denies chest pain and Denies radiating jaw, neck or arm pain Respiratory: Respiratory: Denies cough, Reports dyspnea and Denies wheezing Psychiatric: Psychiatric: Reports anxiety PMFSH Past Medical History Medical History (Updated 04/29/20 @ 19:04 by Vernon Mata MD) Anemia (~08/2019) Bipolar disorder Chronic kidney disease, stage 3 Colon cancer metastasized to bone (~01/2020) Also metastases to liver and lung status post 10 radiation treatments to her right ischium and left acetabulum 03/11/2020 through 03/26/2020; FOLFOX Avastin treatment March 17 2020 HTN (hypertension) Iron deficiency anemia Kidney stones Pathological fracture in neoplastic disease, pelvis, sequela SLE (systemic lupus erythematosus related syndrome) (Unknown) Surgical History Surgical History (Updated 04/23/20 @ 17:06 by Lai Bueno MD) History of adenoidectomy History of hysterectomy History of lithotripsy S/P ureteral stent placement bilateral March 2020 Family History Family History (Updated 04/22/20 @ 23:01 by Paty Oconnor DO) Sibling , due to complications of C diff colitis. Inflammatory bowel disease Social History Social History (Updated 04/22/20 @ 23:03 by Paty Oconnor DO) Social History: Her sibling of complications of C diff colitis. otherwise her family history is unknown because she was adopted. She reports that her adopted father is from complications of type 1 diabetes and that her adopted mother is still alive And in good health. She does not drink alcohol, has never smoked, and does not do marijuana or drugs. She is no longer working due to her cancer and is trying to get on disability. 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 She would like to appoint her Carlos Mello as her medical decision maker if needed. She would like to be a full code Smoking status: Never smoker Alcohol intake: never Substance use: never Substance use typ
--- NOTE | 2020-04-29 13:20 | PC.NURSE ---
Attempted peripheral blood draw x 2, unsuccessful, EDP is aware.
[2020-04-29 14:22] LABS: Anion Gap 8 mmol/L (8-16); Blood Urea Nitrogen 10 mg/dL (7-17); Calcium 6.5 mg/dL (8.4-10.2); Carbon Dioxide 23 mmol/L (22-30); Chloride 105 mmol/L (98-107); Estimated CRCL calculation 59 ml/min; Estimated Glomerular Filt Rate 48; Glucose 98 mg/dL (65-105); Potassium 3.6 mmol/L (3.4-5.0); Sodium 136 mmol/L (137-145)
--- NOTE | 2020-04-29 14:40 | PC.NURSE ---
ED it support technician reports that lab has rejected the purple top tube. Phlebotomy called and will come to the room to draw blood.
[2020-04-29 15:30] LABS: Basophils Absolute Auto 0.1 K/mm3 (0.0-0.1); Basophils Percent Auto 0.6 % (0.2-1.2); Eosinophils Absolute Auto 0.1 K/mm3 (0-0.3); Eosinophils Percent Auto 0.8 % (0-4.4); Hematocrit 35.1 % (37.0-47.0); Hemoglobin 11.8 g/dL (12.0-15.0); Immature Granulocyte Percent A 3.3 % (0-0.5); Immature Platelet Fraction Pct 1.5 % (0.9-11.2); Lymphocytes Absolute Auto 0.73 K/mm3 (0.9-3.2); Mean Corpuscular HGB Conc 33.6 g/dl (32-36); Mean Corpuscular Hemoglobin 27.4 pg (26-34); Mean Corpuscular Volume 81.4 fl (80-100); Mean Platelet Volume 9.8 fl (7.4-10.4); Monocytes Absolute Auto 1.3 K/mm3 (0.1-0.6); Monocytes Percent Auto 10.8 % (2.6-8.5); Neutrophils Absolute Auto 9.5 K/mm3 (1.3-6.7); Neutrophils Percent Auto 78.5 % (45.5-73.1); Red Blood Count 4.31 M/mm3 (4.2-5.4); Red Cell Distribution Width 17.9 % (11.5-14.5); White Blood Count 12.1 K/mm3 (4.5-10.0)
[2020-04-29 15:40] LABS: Platelet Clumps Present; Platelet Estimate Adequate (Adequate)
[2020-04-29] MEDS: SODIUM CHLORIDE 0.9% IV 1,000 ML 999 ML IV CONT (18:11)
[2020-04-29 18:17] LABS: Add Urine Microscopic? YES; Appearance Urine Clear (Clear); Bacteria Urine Trace /hpf; Bilirubin Urine Negative (Negative); Blood Urine 2+ (Negative); Color Urine Yellow (Yellow); Glucose Urine UA Negative (Negative); Ketones Urine Negative (Negative); Leukocyte Esterase Ur 3+ LEU/UL (Negative); Mucus Urine Rare /lpf; Nitrate Urine Negative (Negative); Protein Urine 1+ mg/dL (Negative); RBC Urine >75 /hpf (0-2); Specific Grav Ur 1.012 (1.001-1.035); Squamous Epithelial Cell Urine Occasional /hpf (Few); Urobilinogen Urine Negative mg/dL (<2.0); WBC Urine 31-50 /hpf
[2020-04-29] MEDS: HEPARIN SOD FLUSH 500 UNITS/5 ML SYRINGE (19:24)
== END 2020-04-29 19:40 | disposition home or self-care (01) ==
PROVIDERS: Emergency Provider Emergency Medicine; PCP Nurse Practitioner Adult Health
DX: F41.9 Anxiety disorder, unspecified (principal); D64.9 Anemia, unspecified; F31.9 Bipolar disorder, unspecified; I12.9 Hypertensive chronic kidney disease with stage 1 through stage 4 chronic kidney disease, or unspecified chronic kidney disease; N18.3 Chronic kidney disease, stage 3 (moderate); Z85.038 Personal history of other malignant neoplasm of large intestine; M32.9 Systemic lupus erythematosus, unspecified
CPT/HCPCS: 36415; 51701; 71046; 80048; 81001; 85025; 85055; 87086; 96360; 99283; J7030

== ENCOUNTER 2020-05-06 10:30 | Outpatient (RCR) | payer OTHER, SELFPAY ==
--- NOTE | 2019-11-06 09:42 | PC.NURSE ---
Patient denies any positives to the infectious disease questions.
[2019-11-07 09:09] VITALS: PULSE 79; RESP 16; TEMP 36.6; O2SAT 100
[2019-11-07 09:12] VITALS: BP 143/85
[2019-11-07] MEDS: ACETAMINOPHEN 325 MG TABLET 650 MG PO (09:14)
[2019-11-07] MEDS: CYANOCOBALAMIN INJ 1,000 MCG/ML VIAL 1000 MCG IM (09:15)
[2019-11-07 10:48] VITALS: BP 150/71; RESP 16; O2SAT 82
[2019-11-14 09:34] VITALS: BP 147/73; PULSE 74; RESP 16; TEMP 35.8; O2SAT 99
[2019-11-14] MEDS: ACETAMINOPHEN 325 MG TABLET 650 MG PO (09:46)
[2019-11-14] MEDS: CYANOCOBALAMIN INJ 1,000 MCG/ML VIAL 1000 MCG IM (09:46)
[2019-11-26 11:10] VITALS: BP 131/86; PULSE 89; RESP 16; TEMP 36.4; O2SAT 100
[2019-11-26] MEDS: CYANOCOBALAMIN INJ 1,000 MCG/ML VIAL 1000 MCG IM (11:16)
[2019-12-03 11:19] VITALS: BP 148/84; PULSE 72; RESP 20; TEMP 36.4; O2SAT 100
[2019-12-03] MEDS: CYANOCOBALAMIN INJ 1,000 MCG/ML VIAL 1000 MCG IM (14:59)
[2019-12-10 09:01] LABS: Basophils Absolute Auto 0.1 K/mm3 (0.0-0.1); Basophils Percent Auto 0.7 % (0.2-1.2); Eosinophils Percent Auto 9.7 % (0-4.4); Hematocrit 40.4 % (37.0-47.0); Hemoglobin 11.9 g/dL (12.0-15.0); Immature Granulocyte Absolute 0.14 K/mm3 (0.00-0.031); Immature Granulocyte Percent A 1.3 % (0-0.5); Lymphocytes Absolute Auto 1.28 K/mm3 (0.9-3.2); Lymphocytes Percent Auto 12.2 % (18.3-44.2); Mean Corpuscular HGB Conc 29.5 g/dl (32-36); Mean Corpuscular Hemoglobin 23.8 pg (26-34); Mean Corpuscular Volume 80.6 fl (80-100); Mean Platelet Volume 9.5 fl (7.4-10.4); Monocytes Absolute Auto 1.1 K/mm3 (0.1-0.6); Monocytes Percent Auto 10.8 % (2.6-8.5); Neutrophils Absolute Auto 6.9 K/mm3 (1.3-6.7); Neutrophils Percent Auto 65.3 % (45.5-73.1); Platelet Count Result 348 k/mm3 (150-375); Red Blood Count 5.01 M/mm3 (4.2-5.4); Red Cell Distribution Width 22.3 % (11.5-14.5); White Blood Count 10.5 K/mm3 (4.5-10.0)
[2019-12-10 09:04] VITALS: BP 146/81; PULSE 72; RESP 16; TEMP 36.6; O2SAT 100
[2019-12-10] MEDS: CYANOCOBALAMIN INJ 1,000 MCG/ML VIAL 1000 MCG IM (09:08)
[2019-12-10 12:11] LABS: Iron 46 ug/dL (37-170)
[2019-12-10 12:12] LABS: Blood Urea Nitrogen 16 mg/dL (7-17); Carbon Dioxide 26 mmol/L (22-30); Chloride 105 mmol/L (98-107); Estimated CRCL calculation 61 ml/min; Estimated Glomerular Filt Rate 44; Glucose 89 mg/dL (65-105); Potassium 4.4 mmol/L (3.4-5.0); Sodium 140 mmol/L (137-145)
[2019-12-10 12:20] LABS: Percent Iron Saturation 14 % (20-50)
[2019-12-17 10:56] VITALS: BP 157/75; PULSE 72; RESP 16; TEMP 36.6; O2SAT 100
[2019-12-17] MEDS: CYANOCOBALAMIN INJ 1,000 MCG/ML VIAL 1000 MCG IM (11:01)
[2019-12-24 09:13] VITALS: BP 147/87; PULSE 78; RESP 16; TEMP 37; O2SAT 100
[2019-12-24] MEDS: CYANOCOBALAMIN INJ 1,000 MCG/ML VIAL 1000 MCG IM (09:16)
[2019-12-31 10:10] VITALS: BP 152/84; PULSE 71; RESP 16; TEMP 36.3; O2SAT 100
[2019-12-31] MEDS: CYANOCOBALAMIN INJ 1,000 MCG/ML VIAL 1000 MCG IM (10:18)
[2020-01-09 09:31] VITALS: BP 150/90; PULSE 80; RESP 16; TEMP 35.6; O2SAT 99
[2020-01-09] MEDS: CYANOCOBALAMIN INJ 1,000 MCG/ML VIAL 1000 MCG IM (09:36)
[2020-02-04 14:13] VITALS: BP 149/84; PULSE 84; RESP 16; TEMP 36.8; O2SAT 100
[2020-02-04] MEDS: CYANOCOBALAMIN INJ 1,000 MCG/ML VIAL 1000 MCG IM (14:17)
[2020-02-04 14:34] LABS: Basophils Absolute Auto 0.1 K/mm3 (0.0-0.1); Basophils Percent Auto 0.8 % (0.2-1.2); Eosinophils Absolute Auto 1.7 K/mm3 (0-0.3); Hematocrit 39.1 % (37.0-47.0); Hemoglobin 12.1 g/dL (12.0-15.0); Immature Granulocyte Absolute 0.18 K/mm3 (0.00-0.031); Immature Granulocyte Percent A 1.3 % (0-0.5); Lymphocytes Absolute Auto 1.52 K/mm3 (0.9-3.2); Lymphocytes Percent Auto 10.7 % (18.3-44.2); Mean Corpuscular HGB Conc 30.9 g/dl (32-36); Mean Corpuscular Hemoglobin 24.7 pg (26-34); Mean Corpuscular Volume 79.8 fl (80-100); Mean Platelet Volume 9.2 fl (7.4-10.4); Monocytes Absolute Auto 1.5 K/mm3 (0.1-0.6); Monocytes Percent Auto 10.8 % (2.6-8.5); Neutrophils Absolute Auto 9.2 K/mm3 (1.3-6.7); Neutrophils Percent Auto 64.4 % (45.5-73.1); Platelet Count Result 406 k/mm3 (150-375); White Blood Count 14.2 K/mm3 (4.5-10.0)
[2020-02-04 18:05] LABS: Folic Acid 5.5 ng/mL (2.76->20); Vitamin B12 > 1000.0 pg/mL (239-931)
[2020-02-05 16:30] LABS: Iron 34 ug/dL (37-170)
[2020-02-05 16:40] LABS: Percent Iron Saturation 9 % (20-50)
[2020-03-16 14:49] LABS: Protein Urine 1+ mg/dL (Negative)
[2020-03-16 14:53] LABS: Basophils Absolute Auto 0.1 K/mm3 (0.0-0.1); Basophils Percent Auto 0.4 % (0.2-1.2); Eosinophils Absolute Auto 1.2 K/mm3 (0-0.3); Eosinophils Percent Auto 9.9 % (0-4.4); Hematocrit 33.3 % (37.0-47.0); Hemoglobin 10.1 g/dL (12.0-15.0); Immature Granulocyte Absolute 0.16 K/mm3 (0.00-0.031); Immature Granulocyte Percent A 1.3 % (0-0.5); Lymphocytes Absolute Auto 1.04 K/mm3 (0.9-3.2); Lymphocytes Percent Auto 8.7 % (18.3-44.2); Mean Corpuscular HGB Conc 30.3 g/dl (32-36); Mean Corpuscular Hemoglobin 23.3 pg (26-34); Mean Corpuscular Volume 76.7 fl (80-100); Mean Platelet Volume 8.9 fl (7.4-10.4); Monocytes Absolute Auto 1.3 K/mm3 (0.1-0.6); Monocytes Percent Auto 11.1 % (2.6-8.5); Neutrophils Absolute Auto 8.2 K/mm3 (1.3-6.7); Neutrophils Percent Auto 68.6 % (45.5-73.1); Platelet Count Result 355 k/mm3 (150-375); Red Blood Count 4.34 M/mm3 (4.2-5.4)
[2020-03-16 16:38] LABS: Alanine Aminotransferase 10 U/L (4-35); Albumin Level 3.6 g/dL (3.5-5.1); Alkaline Phosphatase 132 U/L (38-126); Anion Gap 14.3 mmol/L (7-16); Aspartate Amino Transferase 20 U/L (14-36); Bilirubin,Total 0.6 mg/dL (0.2-1.3); Blood Urea Nitrogen 16 mg/dL (7-17); Calcium 8.7 mg/dL (8.4-10.2); Carbon Dioxide 26 mmol/L (22-30); Chloride 99 mmol/L (98-107); Estimated CRCL calculation 60 ml/min; Estimated Glomerular Filt Rate 44; Glucose 104 mg/dL (65-105); Potassium 4.3 mmol/L (3.4-5.0); Sodium 135 mmol/L (137-145)
[2020-03-17 10:41] VITALS: BP 138/66; PULSE 81; RESP 16; TEMP 36.3; O2SAT 99
[2020-03-17] MEDS: FAMOTIDINE 20 MG/2 ML VIAL IV PUSH (10:57)
[2020-03-17] MEDS: diphenhydrAMINE HCl INJ 50 MG/ML VIAL 25 MG IV PUSH (10:57)
[2020-03-17] MEDS: PALONOSETRON HCL 0.25 MG/5 ML VIAL IV PUSH (10:57)
[2020-03-17] MEDS: LEUCOVORIN CALCIUM 800 MG in DEXTROSE 5% IN WATER 210 ML 125 MG IVPB (11:38)
[2020-03-17] MEDS: OXALIPLATIN 170 MG in DEXTROSE 5% IN WATER 216 ML 125 MG IVPB (11:38)
[2020-03-17] MEDS: FLUOROURACIL 1,000 MG/20 ML VIAL 800 MG IV PUSH (15:27)
[2020-03-17] MEDS: FLUOROURACIL 4,800 MG in SODIUM CHLORIDE 0.9% IV 88 ML IVPB (15:27)
--- NOTE | 2020-03-18 14:28 | PC.NURSE ---
Attempted to call patient and see how she is doing after her first chemotherapy treatment, patient did not answer and unable to leave a message.
[2020-03-19 14:00] VITALS: BP 144/74; PULSE 67; RESP 16; TEMP 35.9; O2SAT 100
[2020-03-19] MEDS: HEPARIN SOD FLUSH 500 UNITS/5 ML SYRINGE IV PUSH (14:08)
[2020-03-31 09:03] LABS: Hematocrit 30.1 % (37.0-47.0); Hemoglobin 9.1 g/dL (12.0-15.0); Mean Corpuscular HGB Conc 30.2 g/dl (32-36); Mean Corpuscular Hemoglobin 22.6 pg (26-34); Mean Corpuscular Volume 74.7 fl (80-100); Platelet Count Result 279 k/mm3 (150-375); Red Blood Count 4.03 M/mm3 (4.2-5.4); Red Cell Distribution Width 15.1 % (11.5-14.5); White Blood Count 6.8 K/mm3 (4.5-10.0)
[2020-03-31 09:11] LABS: Blood Urea Nitrogen 30 mg/dL (8-26); Carbon Dioxide 25 mmol/L (22-30); Chloride 98 mmol/L (98-109); Estimated CRCL calculation 26 ml/min; Estimated Glomerular Filt Rate 17; Glucose 99 mg/dL (70-105); Potassium 3.6 mmol/L (3.5-4.9); Sodium 135 mmol/L (138-146)
[2020-03-31 09:12] LABS: Band Neutrophils Percent 28 % (0-6); Eosinophils Absolute Manual 0.06 K/mm3 (0.02-0.5); Eosinophils Percent Manual 1 % (0-4); Lymphocytes Absolute Manual 0.95 K/mm3 (1.1-4.5); Metamyelocytes Percent 5 %; Monocytes Absolute Manual 1.29 K/mm3 (0.1-0.90); Monocytes Percent Manual 19 % (3-9); Neutrophils Absolute Manual 4.14 K/mm3 (1.7-7.2); Neutrophils Percent Manual 33 % (46-73); Platelet Estimate Adequate (Adequate); Total Cells Counted 100
[2020-03-31 09:50] VITALS: BP 121/70; PULSE 92; RESP 16; TEMP 36.4; O2SAT 98
[2020-03-31] MEDS: DEXTROSE 5%/0.9% SOD CHL 1,000 ML 500 ML IV CONT (09:56)
[2020-03-31 11:41] LABS: Alanine Aminotransferase 6 U/L (4-35); Alkaline Phosphatase 111 U/L (38-126); Anion Gap 11 mmol/L (8-16); Aspartate Amino Transferase 14 U/L (14-36); Bilirubin,Total 0.7 mg/dL (0.2-1.3); Blood Urea Nitrogen 34 mg/dL (7-17); Calcium 8.2 mg/dL (8.4-10.2); Carbon Dioxide 25 mmol/L (22-30); Chloride 96 mmol/L (98-107); Estimated CRCL calculation 31 ml/min; Estimated Glomerular Filt Rate 22; Glucose 99 mg/dL (65-105); Potassium 3.8 mmol/L (3.4-5.0); Sodium 132 mmol/L (137-145)
[2020-03-31] MEDS: HEPARIN SOD FLUSH 500 UNITS/5 ML SYRINGE IV PUSH (12:10)
[2020-03-31 12:11] VITALS: BP 120/59; PULSE 80; RESP 16; O2SAT 100
--- NOTE | 2020-04-06 10:17 | PC.NURSE ---
Patient's treatment cancelled due to patient transferred from [facility] to [facility].
--- NOTE | 2020-04-09 13:43 | PHAR ---
AVASTIN CHANGED TO BIOSIMILAR MVASI DUE TO INSURANCE REQUEST. DR CHACON SUBSTITUTION 8- PER CINDY. PATIENT WILL BE EDUCATED ON THIS AT NEXT INFUSION
[2020-04-15 09:13] LABS: Basophils Absolute Auto 0.1 K/mm3 (0.0-0.1); Basophils Percent Auto 0.4 % (0.2-1.2); Eosinophils Absolute Auto 0.1 K/mm3 (0-0.3); Eosinophils Percent Auto 0.9 % (0-4.4); Hematocrit 27.7 % (37.0-47.0); Hemoglobin 8.4 g/dL (12.0-15.0); Immature Granulocyte Absolute 0.32 K/mm3 (0.00-0.031); Immature Granulocyte Percent A 2.5 % (0-0.5); Lymphocytes Absolute Auto 0.75 K/mm3 (0.9-3.2); Mean Corpuscular HGB Conc 30.3 g/dl (32-36); Mean Corpuscular Hemoglobin 25.7 pg (26-34); Mean Corpuscular Volume 84.7 fl (80-100); Mean Platelet Volume 9.4 fl (7.4-10.4); Monocytes Absolute Auto 2.4 K/mm3 (0.1-0.6); Neutrophils Percent Auto 71.2 % (45.5-73.1); Platelet Count Result 294 k/mm3 (150-375); Red Blood Count 3.27 M/mm3 (4.2-5.4); Red Cell Distribution Width 20.8 % (11.5-14.5); White Blood Count 12.6 K/mm3 (4.5-10.0)
[2020-04-15 09:52] LABS: Iron 26 ug/dL (37-170)
[2020-04-15 09:54] LABS: Alanine Aminotransferase 8 U/L (4-35); Albumin Level 2.5 g/dL (3.5-5.1); Alkaline Phosphatase 106 U/L (38-126); Anion Gap 9 mmol/L (8-16); Aspartate Amino Transferase 12 U/L (14-36); Bilirubin,Total 0.6 mg/dL (0.2-1.3); Blood Urea Nitrogen 13 mg/dL (7-17); Calcium 7.7 mg/dL (8.4-10.2); Carbon Dioxide 28 mmol/L (22-30); Chloride 98 mmol/L (98-107); Estimated CRCL calculation 49 ml/min; Estimated Glomerular Filt Rate 37; Glucose 85 mg/dL (65-105); Potassium 3.5 mmol/L (3.4-5.0); Sodium 135 mmol/L (137-145)
[2020-04-15 10:02] LABS: Percent Iron Saturation 14 % (20-50)
[2020-04-15 12:33] VITALS: BP 130/73; PULSE 80; RESP 16; TEMP 35.5; O2SAT 99
[2020-04-15] MEDS: diphenhydrAMINE HCl INJ 50 MG/ML VIAL 25 MG IV PUSH (12:55)
[2020-04-15] MEDS: ACETAMINOPHEN 325 MG TABLET 650 MG PO (12:55)
[2020-04-15] MEDS: IRON SUCROSE COMPLEX 300 MG in SODIUM CHLORIDE 0.9% IV 250 ML 176.667 MG IVPB (13:07)
[2020-04-15] MEDS: DENOSUMAB 120 MG/1.7 ML VIAL SUB-Q (13:09)
[2020-04-15] MEDS: HEPARIN SOD FLUSH 500 UNITS/5 ML SYRINGE IV PUSH (14:59)
[2020-04-16 09:27] VITALS: BP 118/73; PULSE 85; RESP 16; TEMP 36.6; O2SAT 99
[2020-04-16] MEDS: diphenhydrAMINE HCl INJ 50 MG/ML VIAL 25 MG IV PUSH (09:29)
[2020-04-16] MEDS: ACETAMINOPHEN 325 MG TABLET 650 MG PO (09:30)
[2020-04-16] MEDS: IRON SUCROSE COMPLEX 300 MG in SODIUM CHLORIDE 0.9% IV 250 ML 176.667 MG IVPB (09:41)
[2020-04-16 11:45] VITALS: BP 141/71
[2020-04-16] MEDS: HEPARIN SOD FLUSH 500 UNITS/5 ML SYRINGE IV PUSH (11:49)
[2020-04-17 10:40] VITALS: BP 140/67; PULSE 80; RESP 16; TEMP 36.4; O2SAT 99
[2020-04-17] MEDS: diphenhydrAMINE HCl INJ 50 MG/ML VIAL 25 MG IV PUSH (10:45)
[2020-04-17] MEDS: ACETAMINOPHEN 325 MG TABLET 650 MG PO (10:45)
[2020-04-17] MEDS: IRON SUCROSE COMPLEX 300 MG in SODIUM CHLORIDE 0.9% IV 250 ML 176.667 MG IVPB (10:50)
[2020-04-17] MEDS: HEPARIN SOD FLUSH 500 UNITS/5 ML SYRINGE IV PUSH (12:56)
[2020-04-17 12:58] VITALS: BP 148/69; PULSE 75; RESP 16; O2SAT 100
[2020-05-06 10:40] VITALS: BP 77/21; PULSE 109; RESP 18; O2SAT 99
[2020-05-06 10:46] LABS: Glucose Point of Care 128 (65-105)
[2020-05-06 10:48] LABS: Basophils Absolute Auto 0.1 K/mm3 (0.0-0.1); Basophils Percent Auto 0.4 % (0.2-1.2); Eosinophils Absolute Auto 0.1 K/mm3 (0-0.3); Eosinophils Percent Auto 0.4 % (0-4.4); Hematocrit 33.8 % (37.0-47.0); Hemoglobin 10.8 g/dL (12.0-15.0); Immature Granulocyte Absolute 0.34 K/mm3 (0.00-0.031); Immature Granulocyte Percent A 2.4 % (0-0.5); Lymphocytes Absolute Auto 1.02 K/mm3 (0.9-3.2); Lymphocytes Percent Auto 7.2 % (18.3-44.2); Mean Corpuscular Hemoglobin 26.3 pg (26-34); Mean Corpuscular Volume 82.2 fl (80-100); Mean Platelet Volume 9.7 fl (7.4-10.4); Monocytes Percent Auto 13.9 % (2.6-8.5); Neutrophils Absolute Auto 10.7 K/mm3 (1.3-6.7); Neutrophils Percent Auto 75.7 % (45.5-73.1); Platelet Count Result 189 k/mm3 (150-375); Red Blood Count 4.11 M/mm3 (4.2-5.4); Red Cell Distribution Width 17.6 % (11.5-14.5); White Blood Count 14.1 K/mm3 (4.5-10.0)
[2020-05-06 10:52] LABS: Blood Urea Nitrogen 17 mg/dL (8-26); Carbon Dioxide 23 mmol/L (22-30); Chloride 103 mmol/L (98-109); Estimated CRCL calculation 49 ml/min; Estimated Glomerular Filt Rate 37; Glucose 147 mg/dL (70-105); Potassium 3.6 mmol/L (3.5-4.9); Sodium 140 mmol/L (138-146)
[2020-05-06 11:24] VITALS: BP 85/51; PULSE 99; RESP 16; O2SAT 98
[2020-05-06 12:25] LABS: Alanine Aminotransferase 10 U/L (4-35); Alkaline Phosphatase 107 U/L (38-126); Anion Gap 8 mmol/L (8-16); Aspartate Amino Transferase 17 U/L (14-36); Bilirubin,Total 1.1 mg/dL (0.2-1.3); Blood Urea Nitrogen 18 mg/dL (7-17); Carbon Dioxide 24 mmol/L (22-30); Chloride 104 mmol/L (98-107); Estimated CRCL calculation 56 ml/min; Estimated Glomerular Filt Rate 44; Glucose 145 mg/dL (65-105); Potassium 3.8 mmol/L (3.4-5.0); Sodium 136 mmol/L (137-145)
== END 2020-06-30 15:55 | disposition other institution (70) ==
LOC: AMCINF 10:30
PROVIDERS: PCP Nurse Practitioner Adult Health; Visit Provider Internal Medicine Hematology & Oncology
DX: C18.7 Malignant neoplasm of sigmoid colon (principal); C79.51 Secondary malignant neoplasm of bone; I95.89 Other hypotension; D50.0 Iron deficiency anemia secondary to blood loss (chronic); E53.8 Deficiency of other specified B group vitamins; E87.1 Hypo-osmolality and hyponatremia; N39.0 Urinary tract infection, site not specified; N18.3 Chronic kidney disease, stage 3 (moderate); N17.9 Acute kidney failure, unspecified; K92.2 Gastrointestinal hemorrhage, unspecified; M32.9 Systemic lupus erythematosus, unspecified; M84.550 Pathological fracture in neoplastic disease, pelvis; F41.9 Anxiety disorder, unspecified; F31.9 Bipolar disorder, unspecified; R53.1 Weakness; R11.2 Nausea with vomiting, unspecified; R42 Dizziness and giddiness; R55 Syncope and collapse
CPT/HCPCS: 36415; 80048; 80053; 81002; 82378; 82607; 82728; 82746; 83540; 83550; 85025; 96360; 96361; 96365; 96366; 96367; 96368; 96372; 96375; 96411; 96413; 96415; 96416; 96417; 99211; 99212; A9270; G0463; J0640; J0897; J1100; J1200; J1439; J1756; J2469; J3420; J7042; J7050; J7060; J9035; J9190; J9263

== ENCOUNTER 2020-05-06 11:16 | Emergency (ER) | payer OTHER, SELFPAY ==
[2020-05-06] VITALS (10 sets, daily range): BP systolic 109–151; BP diastolic 68–92; PULSE 76–103; RESP 14–21; TEMP 36.6; O2SAT 98–100
--- NOTE | ~2020-05-06 | XR_ITS ---
EXAMINATION: XR chest 2V DATE: 05/06/2020 12:05 INDICATION: Weakness. TECHNIQUE: Frontal and lateral views of the chest were obtained. COMPARISON: Chest 2 views 04/29/2020, 03/24/2004, chest CT 04/03/2020 FINDINGS: Again seen is mild elevation of right hemidiaphragm. There is atelectasis in right middle l obe and left lower lung zone. A calcified left lung nodule and calcified left hilar lymph nodes are c onsistent with old granulomatous disease. No pleural effusion or pneumothorax. The heart size is norm al. There is a right internal jugular port with tip in superior vena cava. IMPRESSION: 1. Atelectasis in right middle lobe and left lower lung zone. 2. Chronic elevation of right hemidiaphragm. Reviewed, dictated and finalized at location A.
--- NOTE | 2020-05-06 11:35 | ECG_ITS ---
Measurements Intervals [place] Rate: 80 P: 22 ND: 128 QRS: -14 QRSD: 96 T: -10 QT: 422 QTc: 487 Interpretive Statements SINUS RHYTHM DELAYED PRECORDIAL R/S TRANSITION BORDERLINE T WAVE ABNORMALITY- ANTEROLAT/INF LEADS BORDERLINE ECG Electronically Signed On 05-06-2020 15:43:19 CDT by Johnny Lake D.O.
[2020-05-06 11:46] LABS: Basophils Absolute Auto 0.1 K/mm3 (0.0-0.1); Basophils Percent Auto 0.4 % (0.2-1.2); Eosinophils Percent Auto 0.3 % (0-4.4); Hemoglobin 10.7 g/dL (12.0-15.0); Immature Granulocyte Absolute 0.29 K/mm3 (0.00-0.031); Immature Granulocyte Percent A 2.6 % (0-0.5); Lymphocytes Absolute Auto 0.82 K/mm3 (0.9-3.2); Lymphocytes Percent Auto 7.4 % (18.3-44.2); Mean Corpuscular HGB Conc 31.5 g/dl (32-36); Mean Corpuscular Hemoglobin 26.4 pg (26-34); Mean Corpuscular Volume 83.7 fl (80-100); Mean Platelet Volume 10.4 fl (7.4-10.4); Monocytes Absolute Auto 1.7 K/mm3 (0.1-0.6); Neutrophils Absolute Auto 8.3 K/mm3 (1.3-6.7); Neutrophils Percent Auto 74.3 % (45.5-73.1); Platelet Count Result 156 k/mm3 (150-375); Red Blood Count 4.06 M/mm3 (4.2-5.4); Red Cell Distribution Width 17.7 % (11.5-14.5); White Blood Count 11.1 K/mm3 (4.5-10.0)
[2020-05-06 11:58] LABS: Alanine Aminotransferase 10 U/L (4-35); Alkaline Phosphatase 101 U/L (38-126); Anion Gap 5 mmol/L (8-16); Aspartate Amino Transferase 16 U/L (14-36); Blood Urea Nitrogen 19 mg/dL (7-17); Calcium 7.2 mg/dL (8.4-10.2); Carbon Dioxide 26 mmol/L (22-30); Chloride 105 mmol/L (98-107); Estimated Glomerular Filt Rate 37; Glucose 142 mg/dL (65-105); Potassium 3.5 mmol/L (3.4-5.0); Sodium 136 mmol/L (137-145)
--- NOTE | 2020-05-06 12:23 | ED.GENADULT ---
HPI - General Adult General Chief complaint: Recheck/Abnormal Lab/Rx Stated complaint: HYPOTENSIVE Time Seen by Provider: 05/06/20 12:17 Source: patient, family and EMS Limitations: no limitations History of Present Illness HPI narrative: 50 years old white female came to the emergency room because of hypotension, blood pressure was 70/20. Patient had a diagnosis of colon cancer with bone metastasis, went to get chemotherapy today prior to starting chemotherapy patient felt dizzy, blood pressure was 70/20, referred to the emergency room for evaluation. Patient had similar symptoms 1 week ago and was about to leave her house to go to get chemotherapy and had dizziness and low blood pressure at that time. Patient had chemotherapy once in March and is behind right now. Patient denies any fever, chills, nausea, vomiting, diarrhea, abdominal pain, chest pain or back pain. Currently complaining of not feeling well and would like to get some ice chips. Related Data Home Medications Medication Instructions Recorded Confirmed aripiprazole [Abilify] 5 mg PO QNOON 10/18/19 04/22/20 naproxen sodium 220 mg PO DAILY PRN 10/18/19 04/22/20 sertraline [Zoloft] 100 mg PO DAILY 10/18/19 04/22/20 ergocalciferol (vitamin D2) 50,000 unit PO WEEKLY 02/18/20 04/22/20 morphine 30 mg PO Q12H 02/18/20 04/22/20 ondansetron HCl [Zofran] 4 mg PO Q6H PRN 03/17/20 04/22/20 Allergies Allergy/AdvReac Type Severity Reaction Status Date / Time cinnamon Allergy Anaphylaxis Verified 05/06/20 12:10 clove Allergy Anaphylaxis Verified 05/06/20 12:10 erythromycin base Allergy Rash Verified 05/06/20 12:10 levofloxacin [From Levaquin] Allergy Hallucinati Verified 05/06/20 12:10 ng nutmeg oil (Myristica seed Allergy Anaphylaxis Verified 05/06/20 12:10 oil) pepper (genus Capsicum) Allergy Anaphylaxis Verified 05/06/20 12:10 all spice Allergy Anaphylaxis Uncoded 05/06/20 12:10 mace Allergy Anaphylaxis Uncoded 05/06/20 12:10 Review of Systems Review of Systems: Narrative: CONSTITUTIONAL: Denies fever, chills, or sweats. EYES: Denies visual changes, redness, or discharge. ENT: Denies rhinorrhea, congestion, sore throat, or otalgia. CARDIOVASCULAR: Denies chest pain, palpitations, or edema. RESPIRATORY: Denies cough or dyspnea. GASTROINTESTINAL: Denies abdominal pain, nausea, vomiting, or diarrhea. GENITOURINARY: Denies dysuria or hematuria. SKIN: Denies rash or itching. MUSCULOSKELETAL: Denies back pain, joint pain, or myalgia. NEUROLOGIC: Denies headache, numbness, or weakness. PSYCHIATRIC: Denies anxiety or depression. [facility] Past Medical History Medical History Anemia (~08/2019) Bipolar disorder Chronic kidney disease, stage 3 Colon cancer metastasized to bone (~01/2020) Also metastases to liver and lung status post 10 radiation treatments to her right ischium and left acetabulum 03/11/2020 through 03/26/2020; FOLFOX Avastin treatment March 17 2020 HTN (hypertension) Iron deficiency anemia Kidney stones Pathological fracture in neoplastic disease, pelvis, sequela SLE (systemic lupus erythematosus related syndrome) (Unknown) Surgical History Surgical History History of adenoidectomy History of hysterectomy History of lithotripsy S/P ureteral stent placement bilateral March 2020 Family History Family History Sibling , due to complications of C diff colitis. Inflammatory bowel disease Social History Social History Social History: Her sibling of complications of C diff colitis. otherwise her family history is unknown because she was adopted. She reports that her adopted father is from complications of type 1 diabetes and that her adopted mother is still alive And in good health. She does not drink alcohol,
[2020-05-06] MEDS: SODIUM CHLORIDE 0.9% IV 1,000 ML 999 ML IV CONT ×2 (12:44→13:46)
[2020-05-06] MEDS: HEPARIN SOD FLUSH 500 UNITS/5 ML SYRINGE (16:12)
== END 2020-05-06 16:20 | disposition home or self-care (01) ==
PROVIDERS: Emergency Medicine; Emergency Provider Emergency Medicine; PCP Nurse Practitioner Adult Health
DX: I95.9 Hypotension, unspecified (principal); D64.9 Anemia, unspecified; F31.9 Bipolar disorder, unspecified; I12.9 Hypertensive chronic kidney disease with stage 1 through stage 4 chronic kidney disease, or unspecified chronic kidney disease; N18.3 Chronic kidney disease, stage 3 (moderate); Z85.038 Personal history of other malignant neoplasm of large intestine; Z85.05 Personal history of malignant neoplasm of liver; Z85.118 Personal history of other malignant neoplasm of bronchus and lung
CPT/HCPCS: 36415; 71046; 80053; 85025; 93005; 96360; 96361; 99283; J7030

== ENCOUNTER 2020-06-23 20:05 | HOS | payer OTHER, SELFPAY ==
[2020-06-23 20:05] VITALS: BMI 23.8
[2020-06-23] MEDS: LORazepam INJ (*CRX) 2 MG/ML VIAL 1 MG IV PUSH (21:54)
[2020-06-23 21:57] VITALS: PULSE 104; RESP 18
[2020-06-23] MEDS: HYDROmorphone HCL/PF (*CRX) 50 MG in SODIUM CHLORIDE 0.9% IV 95 ML 6 MG IV CONT (21:57)
[2020-06-23] MEDS: CENTRAL LINE FLUSH 10 ML IV PUSH (22:11)
[2020-06-24] MEDS: CENTRAL LINE FLUSH 10 ML IV PUSH ×3 (06:39→23:22)
[2020-06-24] MEDS: HYDROmorphone HCL INJ (*CRX) 1 MG/ML SYR IV PUSH ×2 (13:50→16:03)
[2020-06-24 13:54] VITALS: PULSE 80; RESP 16
[2020-06-24] MEDS: HYDROmorphone HCL/PF (*CRX) 50 MG in SODIUM CHLORIDE 0.9% IV 95 ML 6 MG IV CONT (13:54)
[2020-06-24 14:00] VITALS: BP 123/68; PULSE 120; RESP 12; TEMP 36.3; O2SAT 92
--- NOTE | 2020-06-24 17:47 | PM.IMHP ---
H&P: HPI History of Present Illness Date/Time: 06/24/20 17:47 Chief complaint: Lung CA with Mets, Uncontrolled Pain Narrative: Karina Rodriguez is a 50 year old female was having back pain and fatigue early this year she underwent physical therapy. Then obtained MRI. Masses were found. This was and November. She underwent a colonoscopy and was found to have stenosis. Stent was placed. She spent about a month at [facility]. She underwent therapy with radiation and chemo but did not respond well. She continued to decline. She was still driving and performing her own ADLs as late as January of 2020. However from there she gradually declined. Appetite decreased. Activity decreased. She required more assistance with ADLs. By last week she was bed-bound due to severe pain. She was taking 60 mg of long-acting morphine and 120 mg of short-acting morphine scheduled as well as hourly p.r.n. doses. Any light touch was causing severe pain and she would cry out. Because of this she was transferred for inpatient care for pain management. Review of Systems Review of Systems: ROS unobtainable: Yes unobtainable due to medical condition [facility] Past Medical History Medical History (Updated 06/24/20 @ 17:51 by Theo Matthew MD) Anemia (~08/2019) Bipolar disorder Chronic kidney disease, stage 3 Colon cancer metastasized to bone (~01/2020) Also metastases to liver and lung status post 10 radiation treatments to her right ischium and left acetabulum 03/11/2020 through 03/26/2020; FOLFOX Avastin treatment March 17 2020 HTN (hypertension) Iron deficiency anemia Kidney stones Pathological fracture in neoplastic disease, pelvis, sequela SLE (systemic lupus erythematosus related syndrome) (Unknown) Surgical History Surgical History History of adenoidectomy History of hysterectomy History of lithotripsy S/P ureteral stent placement bilateral March 2020 Family History Family History Sibling , due to complications of C diff colitis. Inflammatory bowel disease Social History Social History (Updated 06/24/20 @ 17:49 by Theo Matthew MD) Social History: Her sibling of complications of C diff colitis. otherwise her family history is unknown because she was adopted. She does not drink alcohol, has never smoked, and does not do marijuana or drugs. She is no longer working due to her cancer and is trying to get on disability. She is DNR. ANNABELLE is her spouse. Smoking status: Never smoker Alcohol intake: never Substance use: never Substance use type: does not use Living arrangements: with family Occupation/Education: retired Gender identity (if verbalized by the patient): Female Spiritual care concerns: No Meds Home Medications and Allergies Home Medications Medication Instructions Recorded Confirmed Type aripiprazole [Abilify] 5 mg PO QNOON 10/18/19 06/24/20 History naproxen sodium 220 mg PO DAILY PRN 10/18/19 06/24/20 History sertraline [Zoloft] 100 mg PO DAILY 10/18/19 06/24/20 History ergocalciferol (vitamin D2) 50,000 unit PO WEEKLY 02/18/20 06/24/20 History morphine 30 mg PO Q12H 02/18/20 06/24/20 History ondansetron HCl [Zofran] 4 mg PO Q6H PRN 03/17/20 06/24/20 History cefdinir 300 mg PO Q12H 4 Days #8 cap 04/25/20 06/24/20 Rx prochlorperazine maleate 10 mg PO Q8H PRN #30 tablet 04/25/20 06/24/20 Rx [Compazine] Allergies Allergy/AdvReac Type Severity Reaction Status Date / Time cinnamon Allergy Anaphylaxis Verified 06/24/20 04:30 clove Allergy Anaphylaxis Verified 06/24/20 04:30 erythromycin base Allergy Rash Verified 06/24/20 04:30 levofloxacin [From Levaquin] Allergy Hallucinati Verified 06/24/20 04:30 ng nutmeg oil (Myristica seed Allergy Anaphylaxis Verified 06/24/20 04:30 oil) pepper (genus Capsicum) Allergy Anaphylaxis Verified 06/24/20 04:30 all
[2020-06-24 20:00] VITALS: BP 125/77; PULSE 121; RESP 20; TEMP 37.8; O2SAT 96
[2020-06-24] MEDS: LORazepam INJ (*CRX) 2 MG/ML VIAL 1 MG IV PUSH (21:04)
[2020-06-25 06:35] VITALS: PULSE 120; RESP 18
[2020-06-25 07:37] VITALS: PULSE 120; RESP 18
[2020-06-25] MEDS: HYDROmorphone HCL/PF (*CRX) 50 MG in SODIUM CHLORIDE 0.9% IV 95 ML 6 MG IV CONT (07:37)
[2020-06-25] MEDS: CENTRAL LINE FLUSH 10 ML IV PUSH (08:07)
[2020-06-25] MEDS: LORazepam INJ (*CRX) 2 MG/ML VIAL 1 MG IV PUSH ×3 (09:46→23:05)
[2020-06-25 16:00] VITALS: BP 116/72; PULSE 121; RESP 12; TEMP 36.7; O2SAT 96
[2020-06-25 20:00] VITALS: BP 106/72; PULSE 116; RESP 15; TEMP 36.9; O2SAT 96
--- NOTE | 2020-06-25 20:33 | PM.IMPN ---
Progress Note: A&P Assessment and Plan (1) Palliative care by specialist: Code(s): Z51.5 - Encounter for palliative care Status: Acute Assessment and Plan: meets general inpatient criteria due to uncontrolled pain on high-dose morphine with probable opioid induced hyperalgesia 06/24 Employed opioid rotation and dose reduction with IV hydromorphone 3 milligrams/hour with 1 mg every 2 hours as needed. other palliative medications as ordered (2) Colon cancer metastasized to bone: Onset Date: ~01/2020 Code(s): C18.9 - Malignant neoplasm of colon, unspecified; C79.51 - Secondary malignant neoplasm of bone Status: Acute Subjective Date/time seen: 06/25/20 20:33 Interval history: 06/25: Telemedicine visit. Resting comfortably. No po intake. One episode of restlessness that resolved with lorazepam IV 1mg. Review of Systems Review of Systems: ROS unobtainable: Yes unobtainable due to medical condition Exam Narrative: Exam Narrative: Resting comfortably Objective Data Vital Signs Vital Signs: Vital Signs - 24 hr 06/25/20 06:35 06/25/20 07:37 06/25/20 16:00 Temperature 98.1 F Pulse Rate 120 H 120 H 121 H Respiratory Rate 18 18 12 Blood Pressure 116/72 Pulse Oximetry 96 Intake/Output Intake/Output: Intake & Output 06/22/20 06/23/20 06/24/20 06/25/20 23:59 23:59 23:59 23:59 Intake Total 100 100 Output Total 250 Balance -150 100 Meds/Results Medications: Active Medications Generic Name Dose Route Start Last Admin Trade Name Freq PRN Reason Stop Dose Admin Artificial Tears 2 drop 06/23/20 21:08 Artificial Tears Op Soln 15 Ml Bottle EACH EYE Q4H PRN Dry Eye(s) Glycopyrrolate 0.1 mg 06/23/20 21:11 Glycopyrrolate Inj (*Sp) 0.2 Mg/Ml Vial IV PUSH Q4H PRN EXCESS SECRETIONS Heparin Sodium (Beef Lung) 50 units 06/24/20 09:00 06/25/20 17:50 Heparin Flush 50 Units/5 Ml Syringe IV PUSH Not Given QAM MARK Heparin Sodium (Beef Lung) 50 units 06/23/20 21:14 Heparin Flush 50 Units/5 Ml Syringe IV PUSH PRN PRN after intermittent infusion Heparin Sodium (Beef Lung) 50 units 06/23/20 21:14 Heparin Flush 50 Units/5 Ml Syringe IV PUSH PRN PRN after blood draws Heparin Sodium (Porcine) 500 units 06/23/20 21:14 Heparin Sod Flush 500 Units/5 Ml Syringe IV PUSH PRN PRN see comments below Hydromorphone HCl 1 mg 06/23/20 21:00 06/24/20 16:03 Hydromorphone Hcl Inj (*Crx) 1 Mg/Ml Syr IV PUSH 1 mg Q2H PRN Administration Pain Hydromorphone HCl 50 mg/ 100 mls @ 6 mls/hr 06/23/20 21:30 06/25/20 07:37 Sodium Chloride IV CONT 3 mg/hr .[id number] MARK 6 mls/hr Administration 3 MG/HR Lorazepam 1 mg 06/23/20 21:01 06/25/20 17:51 Lorazepam Inj (*Crx) 2 Mg/Ml Vial IV PUSH 1 mg Q2H PRN Administration Anxiety/RESTLESSNESS Prochlorperazine Edisylate 10 mg 06/23/20 21:11 Prochlorperazine Edisylate 10 Mg/2 Ml Vial IV PUSH Q6H PRN Nausea And Vomiting Sodium Chloride 10 ml 06/23/20 22:00 06/25/20 17:50 Central Line Flush IV PUSH Not Given Q8HR MARK
[2020-06-26 00:18] VITALS: PULSE 98; RESP 18
[2020-06-26] MEDS: CENTRAL LINE FLUSH 10 ML IV PUSH ×4 (01:00→21:54)
[2020-06-26 01:04] VITALS: PULSE 98; RESP 18
[2020-06-26] MEDS: HYDROmorphone HCL/PF (*CRX) 50 MG in SODIUM CHLORIDE 0.9% IV 95 ML 6 MG IV CONT ×2 (01:04→16:35)
[2020-06-26] MEDS: LORazepam INJ (*CRX) 2 MG/ML VIAL 1 MG IV PUSH (10:52)
[2020-06-26 14:00] VITALS: BP 102/63; PULSE 122; RESP 12; TEMP 36.4; O2SAT 92
[2020-06-26 16:35] VITALS: PULSE 123; RESP 20
--- NOTE | 2020-06-26 18:28 | PM.IMPN ---
Progress Note: A&P Assessment and Plan (1) Palliative care by specialist: Code(s): Z51.5 - Encounter for palliative care Status: Acute Assessment and Plan: meets general inpatient criteria due to uncontrolled pain on high-dose morphine with probable opioid induced hyperalgesia 06/24 Employed opioid rotation and dose reduction with IV hydromorphone 3 milligrams/hour with 1 mg every 2 hours as needed. other palliative medications as ordered (2) Colon cancer metastasized to bone: Onset Date: ~01/2020 Code(s): C18.9 - Malignant neoplasm of colon, unspecified; C79.51 - Secondary malignant neoplasm of bone Status: Acute Subjective Date/time seen: 06/26/20 13:20 Interval history: 06/26: Telemedicine visit. Resting comfortably. No po intake. One episode of restlessness that resolved with lorazepam IV 1mg. Review of Systems Review of Systems: ROS unobtainable: Yes unobtainable due to medical condition Exam Narrative: Exam Narrative: Resting comfortably Objective Data Vital Signs Vital Signs: Vital Signs - 24 hr 06/25/20 20:00 06/26/20 00:18 06/26/20 01:04 Temperature 98.5 F Pulse Rate 116 H 98 98 Respiratory Rate 15 18 18 Blood Pressure 106/72 Pulse Oximetry 96 06/26/20 14:00 06/26/20 16:35 Temperature 97.5 F L Pulse Rate 122 H 123 H Respiratory Rate 12 20 Blood Pressure 102/63 Pulse Oximetry 92 Intake/Output Intake/Output: Intake & Output 06/23/20 06/24/20 06/25/20 06/26/20 23:59 23:59 23:59 23:59 Intake Total 100 100 200 Output Total 250 Balance -150 100 200 Meds/Results Medications: Active Medications Generic Name Dose Route Start Last Admin Trade Name Freq PRN Reason Stop Dose Admin Artificial Tears 2 drop 06/23/20 21:08 Artificial Tears Op Soln 15 Ml Bottle EACH EYE Q4H PRN Dry Eye(s) Glycopyrrolate 0.1 mg 06/23/20 21:11 Glycopyrrolate Inj (*Sp) 0.2 Mg/Ml Vial IV PUSH Q4H PRN EXCESS SECRETIONS Heparin Sodium (Beef Lung) 50 units 06/24/20 09:00 06/26/20 08:57 Heparin Flush 50 Units/5 Ml Syringe IV PUSH 50 units QAM MARK Administration Heparin Sodium (Beef Lung) 50 units 06/23/20 21:14 Heparin Flush 50 Units/5 Ml Syringe IV PUSH PRN PRN after intermittent infusion Heparin Sodium (Beef Lung) 50 units 06/23/20 21:14 Heparin Flush 50 Units/5 Ml Syringe IV PUSH PRN PRN after blood draws Heparin Sodium (Porcine) 500 units 06/23/20 21:14 Heparin Sod Flush 500 Units/5 Ml Syringe IV PUSH PRN PRN see comments below Hydromorphone HCl 1 mg 06/23/20 21:00 06/24/20 16:03 Hydromorphone Hcl Inj (*Crx) 1 Mg/Ml Syr IV PUSH 1 mg Q2H PRN Administration Pain Hydromorphone HCl 50 mg/ 100 mls @ 6 mls/hr 06/23/20 21:30 06/26/20 16:35 Sodium Chloride IV CONT 3 mg/hr .[id number] MARK 6 mls/hr Administration 3 MG/HR Lorazepam 1 mg 06/23/20 21:01 06/26/20 10:52 Lorazepam Inj (*Crx) 2 Mg/Ml Vial IV PUSH 1 mg Q2H PRN Administration Anxiety/RESTLESSNESS Prochlorperazine Edisylate 10 mg 06/23/20 21:11 Prochlorperazine Edisylate 10 Mg/2 Ml Vial IV PUSH Q6H PRN Nausea And Vomiting Sodium Chloride 10 ml 06/23/20 22:00 06/26/20 13:18 Central Line Flush IV PUSH 10 ml Q8HR MARK Administration
[2020-06-26 20:22] VITALS: BP 118/64; PULSE 120; RESP 16; TEMP 36.4; O2SAT 95
[2020-06-27] MEDS: LORazepam INJ (*CRX) 2 MG/ML VIAL 1 MG IV PUSH ×2 (05:05→12:45)
[2020-06-27] MEDS: CENTRAL LINE FLUSH 10 ML IV PUSH ×3 (05:05→20:58)
[2020-06-27] MEDS: HYDROmorphone HCL INJ (*CRX) 1 MG/ML SYR IV PUSH (05:19)
--- NOTE | 2020-06-27 07:17 | PM.IMPN ---
Progress Note: A&P Assessment and Plan (1) Palliative care by specialist: Code(s): Z51.5 - Encounter for palliative care Status: Acute Assessment and Plan: meets general inpatient criteria due to uncontrolled pain on high-dose morphine with probable opioid induced hyperalgesia 06/24 Employed opioid rotation and dose reduction with IV hydromorphone 3 milligrams/hour with 1 mg every 2 hours as needed. other palliative medications as ordered (2) Colon cancer metastasized to bone: Onset Date: ~01/2020 Code(s): C18.9 - Malignant neoplasm of colon, unspecified; C79.51 - Secondary malignant neoplasm of bone Status: Acute Subjective Date/time seen: 06/27/20 07:17 Interval history: 06/27:Resting comfortably. No po intake. Sleeping almost constantly. Required extra lorazepam for bathing this AM. Review of Systems Review of Systems: ROS unobtainable: Yes unobtainable due to medical condition Exam Narrative: Exam Narrative: Resting comfortably. Objective Data Vital Signs Vital Signs: Vital Signs - 24 hr 06/26/20 14:00 06/26/20 16:35 06/26/20 20:22 Temperature 97.5 F L 97.6 F Pulse Rate 122 H 123 H 120 H Respiratory Rate 12 20 16 Blood Pressure 102/63 118/64 Pulse Oximetry 92 95 Intake/Output Intake/Output: Intake & Output 06/24/20 06/25/20 06/26/20 06/27/20 23:59 23:59 23:59 23:59 Intake Total 100 100 200 Output Total 250 25 Balance -150 100 200 -25 Meds/Results Medications: Active Medications Generic Name Dose Route Start Last Admin Trade Name Freq PRN Reason Stop Dose Admin Artificial Tears 2 drop 06/23/20 21:08 Artificial Tears Op Soln 15 Ml Bottle EACH EYE Q4H PRN Dry Eye(s) Glycopyrrolate 0.1 mg 06/23/20 21:11 Glycopyrrolate Inj (*Sp) 0.2 Mg/Ml Vial IV PUSH Q4H PRN EXCESS SECRETIONS Heparin Sodium (Beef Lung) 50 units 06/24/20 09:00 06/26/20 08:57 Heparin Flush 50 Units/5 Ml Syringe IV PUSH 50 units QAM MARK Administration Heparin Sodium (Beef Lung) 50 units 06/23/20 21:14 Heparin Flush 50 Units/5 Ml Syringe IV PUSH PRN PRN after intermittent infusion Heparin Sodium (Beef Lung) 50 units 06/23/20 21:14 Heparin Flush 50 Units/5 Ml Syringe IV PUSH PRN PRN after blood draws Heparin Sodium (Porcine) 500 units 06/23/20 21:14 Heparin Sod Flush 500 Units/5 Ml Syringe IV PUSH PRN PRN see comments below Hydromorphone HCl 1 mg 06/23/20 21:00 06/27/20 05:19 Hydromorphone Hcl Inj (*Crx) 1 Mg/Ml Syr IV PUSH 1 mg Q2H PRN Administration Pain Hydromorphone HCl 50 mg/ 100 mls @ 6 mls/hr 06/23/20 21:30 06/26/20 16:35 Sodium Chloride IV CONT 3 mg/hr .[id number] MARK 6 mls/hr Administration 3 MG/HR Lorazepam 1 mg 06/23/20 21:01 06/27/20 05:05 Lorazepam Inj (*Crx) 2 Mg/Ml Vial IV PUSH 1 mg Q2H PRN Administration Anxiety/RESTLESSNESS Prochlorperazine Edisylate 10 mg 06/23/20 21:11 Prochlorperazine Edisylate 10 Mg/2 Ml Vial IV PUSH Q6H PRN Nausea And Vomiting Sodium Chloride 10 ml 06/23/20 22:00 06/27/20 05:05 Central Line Flush IV PUSH 10 ml Q8HR MARK Administration
[2020-06-27] MEDS: HYDROmorphone HCL/PF (*CRX) 50 MG in SODIUM CHLORIDE 0.9% IV 95 ML 6 MG IV CONT ×2 (07:24→23:22)
[2020-06-27 08:00] VITALS: BP 120/88; PULSE 126; RESP 20; TEMP 37.4; O2SAT 97
[2020-06-27 20:10] VITALS: PULSE 120; RESP 16; O2SAT 94
[2020-06-27 22:00] VITALS: BP 85/60; PULSE 122; RESP 18; TEMP 38.6; O2SAT 94
[2020-06-27 23:22] VITALS: PULSE 120; RESP 16
[2020-06-28] MEDS: CENTRAL LINE FLUSH 10 ML IV PUSH (07:59)
[2020-06-28 08:00] VITALS: BP 85/52; PULSE 120; PULSE 131; RESP 22; RESP 28; TEMP 39.3; O2SAT 99
[2020-06-28] MEDS: ACETAMINOPHEN 650 MG SUPPOSITORY (08:35)
[2020-06-28 10:34] VITALS: TEMP 38.8
[2020-06-28] MEDS: LORazepam INJ (*CRX) 2 MG/ML VIAL 1 MG IV PUSH (13:27)
[2020-06-28] MEDS: ACETAMINOPHEN 650 MG SUPPOSITORY RECTAL (13:28)
--- NOTE | 2020-06-28 14:31 | PC.NURSE ---
1353 FOUND PT NOT BREATHING PUPILS NOT RESPONSIVE, NO PULSES NOTED FAMILY AT BEDSIDE NO EYE REFLEX NOTED CALLED [facility] AND CHARGE NURSE. VITAS AT BEDSIDE.
--- NOTE | 2020-06-28 14:35 | PC.NURSE ---
1327 RY NURSE HERE REQUESTING ATIVAN TO BE GIVEN TO PT.
--- NOTE | 2020-06-30 15:11 | PM.DDS ---
Discharge Sum: Prov Provider Primary care physician: Jenny Werner, [employer] Admitting provider: Theo Matthew MD Discharge Sum: Diag Contributing Factors (1) Colon cancer metastasized to bone: Discharge Sum: Summary Date and Time Date of admission: 06/23/20 20:05 Summary Details: Admitted to inpatient hospice due to uncontrolled pain and restlessness. Medications were titrated to comfort. Patient peacefully. Additional Data Attending physician: Theo Matthew MD
== END 2020-06-28 13:53 | disposition expired | DRG 951 ==
PROVIDERS: Admitting Provider Internal Medicine; PCP Nurse Practitioner Adult Health; Visit Provider Internal Medicine
DX: Z51.5 Encounter for palliative care (principal); C18.9 Malignant neoplasm of colon, unspecified; C79.51 Secondary malignant neoplasm of bone; C78.7 Secondary malignant neoplasm of liver and intrahepatic bile duct; C78.00 Secondary malignant neoplasm of unspecified lung; I12.9 Hypertensive chronic kidney disease with stage 1 through stage 4 chronic kidney disease, or unspecified chronic kidney disease; N18.30 Chronic kidney disease, stage 3 unspecified; F31.9 Bipolar disorder, unspecified; D50.9 Iron deficiency anemia, unspecified; M32.9 Systemic lupus erythematosus, unspecified; Z90.710 Acquired absence of both cervix and uterus
CPT/HCPCS: A9270; J1170; J1642; J2060